=== PATIENT | female | born 1940 | race African-American/Black ===

== ENCOUNTER 2016-02-25 10:44 | Emergency (ER) | payer BC ==
[2016-02-25 10:56] VITALS: BP 175/69; PULSE 63; TEMP 98.7; BMI 29.0
--- NOTE | 2016-02-25 12:13 | PDOC ---
History of Present Illness - General Chief Complaint: Pain, Acute Stated Complaint: RT LEG/CALF PAIN Time Seen by Provider: 02/25/16 12:05 History Source: Patient Exam Limitations: No Limitations - History of Present Illness Initial Comments: 02/25/16 12:17 Chief complaint: rt. posterior knee pain History of present illness: Patient is a 75-year-old female with a history of insulin-dependent diabetes, hypertension, hyperlipidemia, and GERD here today complaining of right posterior knee pain 3 weeks. Patient denies that right knee gives out. Patient had been here a few weeks ago and had a venous Doppler ultrasound that was negative for Garcia's cyst or a DVT. 02/25/16 13:20 Occurred: reports: other (3 weeks ago) Severity: Yes: moderate Lower Extremity Pain Location: right: knee (posterior ) Method of Injury: Yes: unknown Modifying Factors: improves with: None Lower Ext. Injury Location - Specific Injury Location Knees: right swelling (posterior knee) Extremity Pain Location - Extremity Pain Location Extremity Pain Locations: right: knee (posterior ) Past History - Past Medical History Allergies/Adverse Reactions: Allergies Allergy/AdvReac Type Severity Reaction Status Date / Time codeine [Codeine] AdvReac NAUSEA/VOMI Verified 02/25/16 10:52 TING Home Medications: Ambulatory Orders Amlodipine Besylate [Norvasc -] 5 mg PO HS 08/31/11 Atorvastatin Ca [Lipitor] 20 mg PO HS 08/31/11 Losartan/Hydrochlorothiazide [Losartan-Hctz 100-25 mg Tab] 1 each PO DAILY 08/30 Metoprolol Tartrate [Lopressor -] 25 mg PO DAILY 08/31/11 Omeprazole [Prilosec (RX)] 20 mg PO DAILY 08/31/11 Magnesium Oxide [Mag-Oxide] 400 mg PO BID 02/19/12 Metformin Xr [Glucophage Xr] 500 mg PO BID 02/19/12 Anemia: Yes Asthma: No Cancer: Yes (lt BREAST) Cardiac Disorders: No CVA: No COPD: No CHF: No Dementia: No Diabetes: Yes GI Disorders: Yes (gerd) Disorders: No HTN: Yes Hypercholesterolemia: Yes Liver Disease: No Seizures: No Thyroid Disease: No - Surgical History Abdominal Surgery: No Appendectomy: No Cardiac Surgery: No Cholecystectomy: No Lung Surgery: No Neurologic Surgery: No Orthopedic Surgery: No - Immunization History Immunization Up to Date: Yes - Psycho/Social/Smoking Cessation Hx Anxiety: No Suicidal Ideation: No Smoking Status: No Smoking History: Never smoked Have you smoked in the past 12 months: No Number of Cigarettes Smoked Daily: 0 Information on smoking cessation initiated: No Hx Alcohol Use: No Drug/Substance Use Hx: No Substance Use Type: None Hx Substance Use Treatment: No Review of Systems - Review of Systems Able to Perform ROS?: Yes Constitutional: No: Symptoms Reported HEENTM: No: Symptoms Reported Respiratory: No: Symptoms reported Cardiac (ROS): No: Symptoms Reported ABD/GI: No: Symptoms Reported Musculoskeletal: Yes: Joint Pain, Joint Swelling (rt. posterior knee pain ) Neurological: No: Symptoms reported *Physical Exam - Vital Signs Last Vital Signs Temp Pulse Resp BP Pulse Ox 98.7 F 63 20 175/69 100 02/25/16 10:52 02/25/16 10:52 02/25/16 10:52 02/25/16 10:52 02/25/16 10:52 - Physical Exam General Appearance: Yes: Appropriately Dressed Respiratory/Chest: positive: Lungs Clear, Normal Breath Sounds. negative: Chest Tender, Respiratory Distress Cardiovascular: positive: Regular Rhythm, Regular Rate, S1, S2 Vascular Pulses: Dorsalis-Pedis (R): 4+ Extremity: positive: Normal Capillary Refill, Normal Inspection, Normal Range of Motion, Tender (rt. posterior knee, no crepitus ), Other (negative anterior/ posterior drawer, negative rt. Joana sign ) Integumentary: positive: Normal Color Neurologic: positive: Alert, Normal Response, Motor Strength 5/5 (right leg) Deep Tendon Reflexes: Ankle (R): 3+ Medical Decision Making - Medical Decision Making 02/25/16 13:20 02/25/16 13:20 Patient is a 75-year-old female with a history of insulin-dependent diabetes, hypertension, hyperlipidemia, and GERD here today complaining of right posterior knee pain 3 weeks. Patient denies that right knee gives out. Patient had been here a few weeks ago and had a venous Doppler ultrasound that was negative for Garcia's cyst or a DVT. 02/25/16 13:20 right knee pain posterior PLAN xray rt. knee degenerative changes noted follow up with orthopedist acetaminophen as needed as directed by floral designer salesperson 02/25/16 22:55 *DC/Admit/Observation/Transfer Diagnosis at time of Disposition: Posterior right knee pain - Discharge Dispostion Disposition: HOME Condition at time of disposition: Stable - Referrals Referrals: Mike Reyna MD, [Primary Care Provider] - Jerry Prather MD [Staff Physician] - - Patient Instructions Additional Instructions: Follow Up with orthopedist as soon as possible Take acetaminophen as needed as directed by floral designer salesperson for pain Avoid any strenuous activities while walking long distances Patient voiced understanding of discharge instructions and all questions were answered
== END 2016-02-25 14:12 | disposition home or self-care (01) ==
LOC: JERFT 10:44
DX: M25.561 Pain in right knee (principal); E11.9 Type 2 diabetes mellitus without complications; K21.9 Gastro-esophageal reflux disease without esophagitis; I10 Essential (primary) hypertension; E78.00 Pure hypercholesterolemia, unspecified; Z85.3 Personal history of malignant neoplasm of breast
CPT/HCPCS: 73562-TC-RT; 99281-25

== ENCOUNTER 2017-06-01 22:20 | Emergency (ER) | payer BC ==
[2017-06-01 22:34] VITALS: BP 156/60; PULSE 62; TEMP 97.2; BMI 28.9
[2017-06-01] MEDS ORDERED: DEXTROSE 5%-NORMAL SALINE 1,000 ML IV SCH (23:00)
--- NOTE | 2017-06-01 23:08 | PDOC ---
History of Present Illness - General History Source: Patient, Old Records Exam Limitations: No Limitations - History of Present Illness Initial Comments: 06/01/17 23:15 The patient is a 76-year-old female with a significant past medical history of metastatic breast cancer, hypertension, hypercholesterolemia, insulin dependent diabetes who presents to the emergency department with hypoglycemia. The patient states that she is suppose to take 20 units of Lantus before bed time but accidently took 20 units of humalog. The patient reports associated shakiness but denies any other symptoms at this time. <Jr Fisher - Last Filed: 06/01/17 23:15> - General History Source: Patient, Family Exam Limitations: No Limitations <Ej Ellis - Last Filed: 06/02/17 02:01> - General Chief Complaint: Blood Sugar Problem Stated Complaint: LOW SUGAR/SHAKING Time Seen by Provider: 06/01/17 22:33 Past History <Jr Fisher - Last Filed: 06/01/17 23:15> - Past Medical History Anemia: Yes Asthma: No Cancer: Yes (lt BREAST) Cardiac Disorders: No CVA: No COPD: No CHF: No Dementia: No Diabetes: Yes GI Disorders: Yes (gerd) Disorders: No HTN: Yes Hypercholesterolemia: Yes Liver Disease: No Seizures: No Thyroid Disease: No - Surgical History Abdominal Surgery: No Appendectomy: No Cardiac Surgery: No Cholecystectomy: No Lung Surgery: No Neurologic Surgery: No Orthopedic Surgery: No - Immunization History Immunization Up to Date: Yes - Suicide/Smoking/Psychosocial Hx Smoking Status: No Smoking History: Never smoked Have you smoked in the past 12 months: No Number of Cigarettes Smoked Daily: 0 Information on smoking cessation initiated: No Hx Alcohol Use: No Drug/Substance Use Hx: No Substance Use Type: None Hx Substance Use Treatment: No <Ej Ellis - Last Filed: 06/02/17 02:01> - Past Medical History Allergies/Adverse Reactions: Allergies Allergy/AdvReac Type Severity Reaction Status Date / Time codeine [Codeine] AdvReac NAUSEA/VOMI Verified 06/01/17 22:34 TING Home Medications: Ambulatory Orders Amlodipine Besylate [Norvasc -] 5 mg PO HS 08/31/11 Atorvastatin Ca [Lipitor] 20 mg PO HS 08/31/11 Losartan/Hydrochlorothiazide [Losartan-Hctz 100-25 mg Tab] 1 each PO DAILY 08/30 Metoprolol Tartrate [Lopressor -] 25 mg PO DAILY 08/31/11 Omeprazole [Prilosec (RX)] 20 mg PO DAILY 08/31/11 Magnesium Oxide [Mag-Oxide] 400 mg PO BID 02/19/12 metFORMIN XR [Glucophage Xr] 500 mg PO BID 02/19/12 Cephalexin [Keflex] 500 mg PO BID #14 capsule 06/02/17 Review of Systems - Review of Systems Able to Perform ROS?: Yes Comments:: 06/01/17 23:15 GENERAL/CONSTITUTIONAL: No fever. No weakness. HEAD, EYES, EARS, NOSE AND THROAT: No change in vision. No ear pain or discharge. No sore throat. CARDIOVASCULAR: No chest pain or shortness of breath. RESPIRATORY: No cough, wheezing, or hemoptysis. GASTROINTESTINAL: No nausea, vomiting, diarrhea or constipation. GENITOURINARY: No dysuria, frequency, or change in urination. MUSCULOSKELETAL: No joint or muscle swelling or pain. No neck or back pain. SKIN: No rash NEUROLOGIC: No headache, vertigo, loss of consciousness, or change in strength/ sensation. ENDOCRINE: No increased thirst. No abnormal weight change. HEMATOLOGIC/LYMPHATIC: (+) Low blood sugar. No anemia, easy bleeding, or history of blood clots. ALLERGIC/IMMUNOLOGIC: No hives or skin allergy. QUOTES: (+) Shakiness <Jr Fisher - Last Filed: 06/01/17 23:15> *Physical Exam - Vital Signs Last Vital Signs Temp Pulse Resp BP Pulse Ox 97.2 F L 62 17 156/60 100 06/01/17 22:26 06/01/17 22:26 06/01/17 22:26 06/01/17 22:26 06/01/17 22:26 - Physical Exam Comments: 06/01/17 23:15 GENERAL: Awake, alert, and fully oriented, in no acute distress HEAD: No signs of trauma EYES: PERRLA, EOMI, sclera anicteric, conjunctiva clear ENT: Auricles normal inspection, hearing grossly normal, nares patent, oropharynx clear without exudates. Moist mucosa NECK: Normal ROM, supple, no lymphadenopathy, JVD, or masses LUNGS: Breath sounds equal, clear to auscultation bilaterally. No wheezes, and no crackles HEART: Regular rate and rhythm, normal S1 and S2, no murmurs, rubs or gallops ABDOMEN: Soft, nontender, normoactive bowel sounds. No guarding, no rebound. No masses EXTREMITIES: Normal range of motion, no edema. No clubbing or cyanosis. No cords, erythema, or tenderness NEUROLOGICAL: Cranial nerves II through XII grossly intact. Normal speech, normal gait SKIN: Warm, Dry, normal turgor, no rashes or lesions noted. <Jr Fisher - Last Filed: 06/01/17 23:15> - Vital Signs Last Vital Signs Temp Pulse Resp BP Pulse Ox 97.2 F L 62 17 156/60 100 06/01/17 22:26 06/01/17 22:26 06/01/17 22:26 06/01/17 22:26 06/01/17 22:26 <Ej Ellis - Last Filed: 06/02/17 02:01> Heart Score/ECG Review #1 ECG reviewed & interpreted by me at: 01:50 06/02/17 01:53 NSR 69, no std/bar, TWI avL, QTC 432 msec <Ej Ellis - Last Filed: 06/02/17 02:01> ED Treatment Course - LABORATORY CBC & Chemistry Diagram: 06/01/17 23:10 06/01/17 23:10 <Ej Ellis - Last Filed: 06/02/17 02:01> Medical Decision Making - Medical Decision Making 06/01/17 23:04 A portion of this note was documented by scribe services under my direction. I have reviewed the details of the note, within reason, and agree with the documentation with the following case summary and management plan written by me. Patient treated in the ED. Nursing notes are reviewed and incorporated into the medical decision-making. Vital signs reviewed. Peripheral IV access obtained by the nurse, laboratory studies are drawn and sent, reviewed and interpreted by myself. Vital Signs Temp Pulse Resp BP Pulse Ox 97.2 F L 62 17 156/60 100 06/01/17 22:26 06/01/17 22:26 06/01/17 22:26 06/01/17 22:26 06/01/17 22:26 76-year-old female patient with history of hypertension, insulin-dependent diabetes presents with hypoglycemia. The patient was in her usual state of health and feeling well today. The patient was supposed to take 20 units of Lantus before bed but had had accidentally taken 20 minutes of Humalog. Patient reports that she typically takes 3 units of Humalog when she eats. She then felt lightheaded, palpitations, dizzy, shaky and noted her glucose is 43. Patient had then taken sugar tablet, can of soda, 2 cookies and called 911. The patient was then brought to the ED. She continued feels shaky you know her sugar has improved. Denies chest pain or shortness of breath. Denies recent illnesses, fevers, chills. I suspect that the hypoglycemia secondary to accidental dose of Humalog. We'll need to observe the patient and start a dextrose drip. We'll encourage patient to drink plenty of juice here. We'll obtain blood work and observe the patient. 06/02/17 01:55 CBC, BMP 06/01/17 23:10 06/01/17 23:10 CMP Sodium 140 mmol/L (136-145) 06/01/17 23:10 Potassium 4.0 mmol/L (3.5-5.1) 06/01/17 23:10 Chloride 103 mmol/L (98-107) 06/01/17 23:10 Carbon Dioxide 26 mmol/L (21-32) 06/01/17 23:10 Anion Gap 11 (8-16) 06/01/17 23:10 BUN 30 mg/dL (7-18) H 06/01/17 23:10 Creatinine 1.5 mg/dL (0.55-1.02) H 06/01/17 23:10 Creat Clearance w eGFR 33.67 (>60) 06/01/17 23:10 Random Glucose 230 mg/dL (74-106) H 06/01/17 23:10 Calcium 9.0 mg/dL (8.5-10.1) 06/01/17 23:10 Phosphorus 3.9 mg/dL (2.5-4.9) 06/01/17 23:10 Magnesium 2.1 mg/dL (1.8-2.4) 06/01/17 23:10 Total Bilirubin 0.3 mg/dL (0.2-1.0) 06/01/17 23:10 AST 20 U/L (15-37) 06/01/17 23:10 ALT 21 U/L (12-78) 06/01/17 23:10 Alkaline Phosphatase 149 U/L (45-117) H 06/01/17 23:10 Creatine Kinase 84 IU/L (26-192) 06/01/17 23:10 Troponin I < 0.02 ng/ml (0.00-0.05) 06/01/17:10 Total Protein 7.4 g/dl (6.4-8.2) 06/01/17 23:10 Albumin 3.9 g/dl (3.4-5.0) 06/01/17 23:10 Urine Test Results Urine Color Colorless 06/01/17 23:00 Urine Appearance Clear 06/01/17 23: Urine pH 5.0 (5.0-8.0) 06/01/17 23:00 Ur Specific [place] 1.003 (1.001-1.035) 06/01/17 23:00 Urine Protein 1+ (NEGATIVE) H 06/01/17 23:00 Urine Glucose (UA) 3+ (NEGATIVE) H D 06/01/17 23:00 Urine Ketones Negative (NEGATIVE) 06/01/17 23:00 Urine Blood Negative (NEGATIVE) 06/01/17 23:00 Urine Nitrite Negative (NEGATIVE) 06/01/17 23:00 Urine Bilirubin Negative (<2.0 mg/dL) 06/01/17 23:00 Ur Leukocyte Esterase 1+ (NEGATIVE) H 06/01/17 23:00 Ur Epithelial Cells Rare /HPF (FEW) 06/01/17 23:00 Urine Bacteria Rare /hpf (NONE SEEN) 06/01/17 23:00 Urine Mucus Rare 06/01/17 23:00 The patient has been tolerating by mouth and has been alert and awake. She been drinking juice without difficulty. She does endorse that she has some urinary frequency. Given 1+ leukocyte Estrace and 7 WBCs, we'll treat with cephalexin. I had discussed the case with [facility] who states can observe for about 4 to 6 hours, and if patient is alert and stable, the patient can be discharged home. Will d/c as UTI as well. Case signed out to Dr. Dalton Ou for observation. And if asymptomatic, can be discharged. <Ej Ellis - Last Filed: 06/02/17 02:01> *DC/Admit/Observation/Transfer - Attestations Scribe Attestion: 06/01/17 23:15 Documentation prepared by Jr Fisher, acting as biomedical instrument technician for Ej Ellis MD. <Jr Fisher - Last Filed: 06/01/17 23:15> <Ej Ellis - Last Filed: 06/02/17 02:01> Diagnosis at time of Disposition: Hypoglycemia UTI (urinary tract infection) Qualifiers: Urinary tract infection type: site unspecified Hematuria presence: without hematuria Qualified Code(s): N39.0 - Urinary tract infection, site not specified - Discharge Dispostion Condition at time of disposition: Stable - Prescriptions Prescriptions: Cephalexin [Keflex] 500 mg PO BID #14 capsule - Referrals Referrals: Mike Reyna MD, MD [Primary Care Provider] - - Patient Instructions Printed Discharge Instructions: DI for Urinary Tract Infection (UTI), DI for Hypoglycemia Additional Instructions: Please drink plenty of fluids and rest. Please be careful the next time you use insulin. You also have a urine infection. Please take the antibiotics as prescribed. Complete the course and follow up with the doctor.
[2017-06-01 23:30] LABS: BASO % 0.1 % (0-2.0); EOS % 0.1 % (0-4.5); HEMATOCRIT 35.7 % (32.4-45.2); LYMPH % 3.9 % (8-40); MCH 28.9 pg (25.7-33.7); MCHC 33.5 g/dl (32.0-36.0); MEAN PLT VOLUME 7.9 fl (7.5-11.1); MONO % 4.7 % (3.8-10.2); NEUT % 91.2 % (42.8-82.8); PLATELET COUNT 207 K/MM3 (134-434); RBC 4.15 M/mm3 (3.60-5.2); RDW 13.4 % (11.6-15.6); WHITE BLOOD COUNT 9.8 K/mm3 (4.0-10.0)
[2017-06-01 23:41] LABS: URINE APPEARANCE CLEAR; URINE BILIRUBIN NEGATIVE (<2.0 mg/dL); URINE BLOOD NEGATIVE (NEGATIVE); URINE COLOR COLORLESS; URINE GLUCOSE (UA) 3+ (NEGATIVE); URINE KETONE NEGATIVE (NEGATIVE); URINE NITRITE NEGATIVE (NEGATIVE); URINE UROBILINOGEN NEGATIVE mg/dL (0.2-1.0)
[2017-06-01 23:51] LABS: URINE LEUK ESTERASE 1+ (NEGATIVE); URINE PROTEIN 1+ (NEGATIVE)
[2017-06-01 23:52] LABS: ALBUMIN 3.9 g/dl (3.4-5.0); ALK PHOS 149 U/L (45-117); ANION GAP 11 (8-16); BILIRUBIN,TOTAL 0.3 mg/dL (0.2-1.0); BLOOD UREA NITROGEN 30 mg/dL (7-18); CHLORIDE 103 mmol/L (98-107); CO2 26 mmol/L (21-32); CREATININE 1.5 mg/dL (0.55-1.02); GLUCOSE,RANDOM 230 mg/dL (74-106); MAGNESIUM 2.1 mg/dL (1.8-2.4); PHOSPHOROUS 3.9 mg/dL (2.5-4.9); SGOT/AST 20 U/L (15-37); SGPT/ALT 21 U/L (12-78); SODIUM 140 mmol/L (136-145); TOT PROT 7.4 g/dl (6.4-8.2)
[2017-06-02 00:28] LABS: EPI CELLS RARE /HPF (FEW); URINE BACTERIA RARE /hpf (NONE SEEN); URINE MUCUS RARE
[2017-06-02] MEDS ORDERED: CEPHALEXIN 250 MG/5 ML ORAL SUSPENSION PO ONE (01:23)
[2017-06-02] MEDS ORDERED: CEPHALEXIN MONOHYDRATE 500 MG CAPSULE (UD) PO ONE (02:01)
[2017-06-02] MEDS ORDERED: CEPHALEXIN MONOHYDRATE 250 MG CAPSULE (FP) ONE (02:25)
--- NOTE | 2017-06-02 06:03 | PDOC ---
*Physical Exam - Vital Signs Last Vital Signs Temp Pulse Resp BP Pulse Ox 97.2 F L 62 17 156/60 100 06/01/17 22:26 06/01/17 22:26 06/01/17 22:26 06/01/17 22:26 06/01/17 22:26 - Physical Exam Comments: 06/02/17 06:02 "GENERAL: Awake, alert, and fully oriented, in no acute distress. HEAD: No signs of trauma EYES: PERRLA, EOMI, sclera anicteric, conjunctiva clear ENT: Auricles normal inspection, hearing grossly normal, nares patent, oropharynx clear without exudates. Moist mucosa NECK: Nontender, no stepoffs, Normal ROM, supple, no lymphadenopathy, JVD, or masses LUNGS: Breath sounds equal, clear to auscultation bilaterally. No wheezes, and no crackles HEART: Regular rate and rhythm, normal S1 and S2, no murmurs, rubs or gallops ABDOMEN: Soft, nontender, normoactive bowel sounds. No guarding, no rebound. No masses EXTREMITIES: Normal range of motion, no edema. No clubbing or cyanosis. No cords, erythema, or tenderness NEUROLOGICAL: Cranial nerves II through XII intact. 5/5 strength and sensation in all extremities, Normal speech, normal gait, normal cerebellar function SKIN: Warm, Dry, normal turgor, no rashes or lesions noted. " ED Treatment Course - LABORATORY CBC & Chemistry Diagram: 06/01/17 23:10 06/01/17 23:10 - ADDITIONAL ORDERS Additional order review: Laboratory Results 06/01/17 06/01/17 06/01/17 23:10 23:10 23:00 Sodium 140 Potassium 4.0 Chloride 103 Carbon Dioxide 26 Anion Gap 11 BUN 30 H Creatinine 1.5 H Creat Clearance w eGFR 33.67 Random Glucose 230 H Calcium 9.0 Phosphorus 3.9 Magnesium 2.1 Total Bilirubin 0.3 AST 20 ALT 21 Alkaline Phosphatase 149 H Creatine Kinase 84 Troponin I < 0.02 Total Protein 7.4 Albumin 3.9 Urine Color Colorless Urine Appearance Clear Urine pH 5.0 Ur Specific [place] 1.003 Urine Protein 1+ H Urine Glucose (UA) 3+ H D Urine Ketones Negative Urine Blood Negative Urine Nitrite Negative Urine Bilirubin Negative Urine Urobilinogen Negative Ur Leukocyte Esterase 1+ H Urine WBC (Auto) 7 Urine RBC (Auto) None Ur Epithelial Cells Rare Urine Bacteria Rare Urine Mucus Rare 06/01/17 23:10 RBC 4.15 D MCV 86.0 MCHC 33.5 RDW 13.4 D MPV 7.9 Neutrophils % 91.2 H D Lymphocytes % 3.9 L D Monocytes % 4.7 Eosinophils % 0.1 Basophils % 0.1 - Medications Given in the ED: ED Medications Discontinued Medications Generic Name Dose Route Start Last Admin Trade Name Amelia PRN Reason Stop Dose Admin Cephalexin 500 mg 06/02/17 01:23 06/02/17 02:32 Keflex Oral Suspension - PO 06/02/17 01:24 Not Given ONCE ONE Cephalexin HCl 500 mg 06/02/17 02:01 06/02/17 02:31 Keflex - PO 06/02/17 02:02 500 mg ONCE ONE Administration Medical Decision Making - Medical Decision Making 06/02/17 06:02 Sign out taken from Dr. Ellis at 2AM. Pt reassessed - states she feels well. Pt is well appearing, with normal vitals. Clinically stable for DC at this time. I discussed the physical exam findings, ancillary test results and final diagnoses with the patient. I answered all of the patient's questions. The patient was satisfied with the care received and felt comfortable with the discharge plan and treatment plan. The patient agrees to follow up with the primary care physician within 24-72 hours. *DC/Admit/Observation/Transfer Diagnosis at time of Disposition: Hypoglycemia UTI (urinary tract infection) Qualifiers: Urinary tract infection type: site unspecified Hematuria presence: without hematuria Qualified Code(s): N39.0 - Urinary tract infection, site not specified - Discharge Dispostion Condition at time of disposition: Stable - Prescriptions Prescriptions: Cephalexin [Keflex] 500 mg PO BID #14 capsule - Referrals Referrals: Mike Reyna MD, MD [Primary Care Provider] - - Patient Instructions Printed Discharge Instructions: DI for Urinary Tract Infection (UTI), DI for Hypoglycemia Additional Instructions: Please drink plenty of fluids and rest. Please be careful the next time you use insulin. You also have a urine infection. Please take the antibiotics as prescribed. Complete the course and follow up with the doctor. - Post Discharge Activity - Attestations Physician Attestion: 06/02/17 06:03 I, Dr. Dalton Maria MD, attest that this document has been prepared under my direction and personally reviewed by me in its entirety. I further attest, that it accurately reflects all work, treatment, procedures and medical decision -making performed by me.
--- NOTE | 2017-06-04 12:52 | EKG ---
Test Reason : Blood Pressure : / mmHG Vent. Rate : 069 BPM Atrial Rate : 069 BPM P-R Int : 158 ms QRS Dur : 078 ms QT Int : 404 ms P-R-T Axes : 048 -09 060 degrees QTc Int : 432 ms NORMAL SINUS RHYTHM WITH SINUS ARRHYTHMIA NORMAL ECG WHEN COMPARED WITH ECG OF 30-SEP-2009 14:58, NONSPECIFIC T WAVE ABNORMALITY NO LONGER EVIDENT IN INFERIOR LEADS Confirmed by MELANY OTERO MD ([id number]) on 06/04/2017 12:51:58 PM Referred By: Confirmed By:MELANY OTERO MD
== END 2017-06-02 07:14 | disposition home or self-care (01) ==
LOC: JER 22:20
PROC: 3E0337Z Introduction of Electrolytic and Water Balance Substance into Peripheral Vein, Percutaneous Approach (ICD-10-PCS; principal; 2017-06-01)
DX: E11.649 Type 2 diabetes mellitus with hypoglycemia without coma (principal); T38.3X5A Adverse effect of insulin and oral hypoglycemic [antidiabetic] drugs, initial encounter; Z79.4 Long term (current) use of insulin; Y92.038 Other place in apartment as the place of occurrence of the external cause; E78.00 Pure hypercholesterolemia, unspecified; K21.9 Gastro-esophageal reflux disease without esophagitis; Z85.3 Personal history of malignant neoplasm of breast
CPT/HCPCS: 36415; 80053; 81003; 81015; 82550; 82962; 83735; 84100; 84484; 85025; 87086; 93005; 93010; 96360; 96361; 99282-25

== ENCOUNTER → 2019-04-01 | Day surgery (SDC) | payer BC ==
[2019-04-01 13:38] LABS: BASO % 1.1 % (0-2.0); EOS % 1.8 % (0-4.5); HEMATOCRIT 37.8 % (32.4-45.2); HEMOGLOBIN 12.5 GM/dL (10.7-15.3); LYMPH % 29.8 % (8-40); MCH 28.5 pg (25.7-33.7); MCHC 33.2 g/dl (32.0-36.0); MEAN CELL VOLUME 85.7 fl (80-96); MONO % 6.5 % (3.8-10.2); NEUT % 60.8 % (42.8-82.8); PLATELET COUNT 233 K/MM3 (134-434); RBC 4.41 M/mm3 (3.60-5.2); RDW 13.6 % (11.6-15.6); WHITE BLOOD COUNT 5.9 K/mm3 (4.0-10.0)
== END | disposition home or self-care (01) ==
LOC: EDSTATUS 07:41 → JONCCHEMO 13:09
PROVIDERS: ATTEND Internal Medicine Hematology & Oncology
DX: Z53.8 Procedure and treatment not carried out for other reasons (principal)
CPT/HCPCS: 36415; 82378; 83036; 85025; 86300; 96365

== ENCOUNTER 2020-06-12 15:19 | Emergency (ER) | payer BC ==
[2020-06-12 15:29] VITALS: BMI 27.0
[2020-06-12 17:25] VITALS: TEMP 98.4
[2020-06-12 17:28] LABS: BASO % 1.1 % (0-2.0); EOS % 1.4 % (0-4.5); HEMATOCRIT 37.7 % (32.4-45.2); HEMOGLOBIN 12.5 GM/dL (10.7-15.3); LYMPH % 32.1 % (8-40); MCH 28.6 pg (25.7-33.7); MCHC 33.2 g/dl (32.0-36.0); MEAN PLT VOLUME 8.4 fl (7.5-11.1); NEUT % 54.4 % (42.8-82.8); PLATELET COUNT 184 K/MM3 (134-434); RBC 4.39 M/mm3 (3.60-5.2); RDW 13.3 % (11.6-15.6); WHITE BLOOD COUNT 4.1 K/mm3 (4.0-10.0)
[2020-06-12 17:51] LABS: CHLORIDE 108 mmol/L (98-107); SODIUM 141 mmol/L (136-145)
[2020-06-12 17:53] LABS: ALBUMIN 3.4 g/dl (3.4-5.0); ANION GAP 6 MMOL/L (8-16); BLOOD UREA NITROGEN 21.2 mg/dL (7-18); CALCIUM 8.7 mg/dL (8.5-10.1); CO2 27 mmol/L (21-32); GLUCOSE,RANDOM 106 mg/dL (74-106)
[2020-06-12 17:56] LABS: CREATININE 1.3 mg/dL (0.55-1.3); SGOT/AST 20 U/L (15-37); SGPT/ALT 18 U/L (13-61)
[2020-06-12 17:58] LABS: BILIRUBIN,TOTAL 0.4 mg/dL (0.2-1); TOT PROT 6.6 g/dl (6.4-8.2)
[2020-06-12 17:59] LABS: ALK PHOS 136 U/L (45-117)
[2020-06-12] MEDS ORDERED: amLODIPine BESYLATE 10 MG TABLET (FP) PO ONE (18:38)
[2020-06-12 18:42] LABS: EPI CELLS 6 /uL (0-25.1); HYALINE CASTS 2 /uL (0-3.1); URINE APPEARANCE CLEAR; URINE BACTERIA 72 /uL (0-1359); URINE BILIRUBIN NEGATIVE (NEGATIVE); URINE COLOR YELLOW; URINE GLUCOSE (UA) NEGATIVE (NEGATIVE); URINE KETONE NEGATIVE (NEGATIVE); URINE LEUK ESTERASE NEGATIVE (NEGATIVE); URINE NITRITE NEGATIVE (NEGATIVE); URINE PROTEIN 2+ (NEGATIVE); URINE RBC 3 /uL (0-23.9); URINE UROBILINOGEN 0.2 mg/dL (0.2-1.0); URINE WBC 9 /uL (0-25.8)
[2020-06-12] MEDS ORDERED: amLODIPine BESYLATE 5 MG TABLET (FP) ONE (19:36)
[2020-06-12] MEDS ORDERED: NITROGLYCERIN SUBLINGUAL 1/150 0.4 MG TAB SL ONE (20:01)
[2020-06-12] MEDS ORDERED: VALSARTAN 40 MG TABLET PO ONE (20:02)
[2020-06-12] MEDS ORDERED: VALSARTAN 80 MG TABLET ONE (20:05)
[2020-06-12 20:25] VITALS: BP 175/84; PULSE 68
== END 2020-06-12 20:32 | disposition home or self-care (01) ==
LOC: JER 15:19
DX: I10 Essential (primary) hypertension (principal)
CPT/HCPCS: 36415; 70450-TC; 71046-TC-FY; 80053; 81003; 82550; 82962; 84484; 85025; 93005; 93010; 99285-25

== ENCOUNTER 2020-07-01 11:20 | Observation (INO) | payer BC ==
[2020-07-01 11:23] VITALS: BMI 26.8
[2020-07-01 13:16] LABS: BASO % 0.9 % (0-2.0); HEMATOCRIT 37.4 % (32.4-45.2); HEMOGLOBIN 12.6 GM/dL (10.7-15.3); LYMPH % 27.5 % (8-40); MCH 28.8 pg (25.7-33.7); MCHC 33.6 g/dl (32.0-36.0); MEAN CELL VOLUME 85.7 fl (80-96); MEAN PLT VOLUME 8.7 fl (7.5-11.1); MONO % 7.1 % (3.8-10.2); NEUT % 63.5 % (42.8-82.8); PLATELET COUNT 196 K/MM3 (134-434); RBC 4.37 M/mm3 (3.60-5.2); RDW 13.4 % (11.6-15.6); WHITE BLOOD COUNT 5.1 K/mm3 (4.0-10.0)
[2020-07-01 13:42] LABS: CHLORIDE 105 mmol/L (98-107); SODIUM 139 mmol/L (136-145)
[2020-07-01 13:44] LABS: ALBUMIN 3.6 g/dl (3.4-5.0); ANION GAP 5 MMOL/L (8-16); BLOOD UREA NITROGEN 18.4 mg/dL (7-18); CALCIUM 8.6 mg/dL (8.5-10.1); CO2 29 mmol/L (21-32); GLUCOSE,RANDOM 158 mg/dL (74-106); MAGNESIUM 2.2 mg/dL (1.8-2.4)
[2020-07-01 13:47] LABS: CREATININE 1.2 mg/dL (0.55-1.3); SGOT/AST 24 U/L (15-37); SGPT/ALT 25 U/L (13-61)
[2020-07-01 13:49] LABS: BILIRUBIN,TOTAL 0.4 mg/dL (0.2-1); TOT PROT 6.8 g/dl (6.4-8.2)
[2020-07-01 13:50] LABS: ALK PHOS 142 U/L (45-117)
[2020-07-01] MEDS ORDERED: D5-1/2NS+20 MEQ KCL - 20 MEQ/1,000 ML INFUS.BAG IV SCH (17:00)
[2020-07-01] MEDS: HEPARIN NA (PORCINE) 5,000 UNITS/ML 1ML VIAL SQ SCH (21:40)
[2020-07-01] MEDS ORDERED: ATORVASTATIN CA 20 MG TABLET (FP) PO SCH (22:00)
[2020-07-02 06:04] LABS: BASO % 0.4 % (0-2.0); EOS % 2.9 % (0-4.5); HEMATOCRIT 35.4 % (32.4-45.2); HEMOGLOBIN 12.2 GM/dL (10.7-15.3); LYMPH % 41.5 % (8-40); MCH 29.2 pg (25.7-33.7); MCHC 34.4 g/dl (32.0-36.0); MEAN CELL VOLUME 84.9 fl (80-96); MEAN PLT VOLUME 8.3 fl (7.5-11.1); MONO % 10.3 % (3.8-10.2); NEUT % 44.9 % (42.8-82.8); PLATELET COUNT 173 K/MM3 (134-434); RBC 4.17 M/mm3 (3.60-5.2); RDW 13.1 % (11.6-15.6); WHITE BLOOD COUNT 4.3 K/mm3 (4.0-10.0)
[2020-07-02 06:36] LABS: CHLORIDE 109 mmol/L (98-107); SODIUM 140 mmol/L (136-145)
[2020-07-02 06:38] LABS: CALCIUM 8.6 mg/dL (8.5-10.1)
[2020-07-02 06:39] LABS: ANION GAP 5 MMOL/L (8-16); BLOOD UREA NITROGEN 17.8 mg/dL (7-18); CO2 26 mmol/L (21-32); GLUCOSE,RANDOM 161 mg/dL (74-106)
[2020-07-02 06:41] LABS: SGPT/ALT 19 U/L (13-61)
[2020-07-02 06:42] LABS: CREATININE 1.1 mg/dL (0.55-1.3); SGOT/AST 13 U/L (15-37)
[2020-07-02 06:43] LABS: BILIRUBIN,TOTAL 0.4 mg/dL (0.2-1)
[2020-07-02 06:44] LABS: ALK PHOS 123 U/L (45-117)
[2020-07-02] MEDS ORDERED: ANASTROZOLE 1 MG TABLET PO SCH (10:00)
[2020-07-02] MEDS ORDERED: VALSARTAN 40 MG TABLET PO SCH (10:00)
[2020-07-02] MEDS ORDERED: amLODIPine BESYLATE 5 MG TABLET (FP) PO SCH (10:00)
[2020-07-02] MEDS ORDERED: PT OWN MED DRAWER 7, Y5N ONE (10:29)
[2020-07-02] MEDS: HEPARIN NA (PORCINE) 5,000 UNITS/ML 1ML VIAL SQ SCH (10:35)
[2020-07-02 10:45] VITALS: BP 155/62; PULSE 47; TEMP 97.6
[2020-07-02] MEDS ORDERED: INSULIN SLIDING SCALE (NOVOLOG) 1 VIAL SQ SCH (11:00)
[2020-07-02] MEDS ORDERED: VALSARTAN 40 MG TABLET PO ONE (11:45)
[2020-07-03] MEDS ORDERED: VALSARTAN 80 MG TABLET PO SCH (10:00)
== END 2020-07-02 14:00 | disposition home or self-care (01) ==
LOC: JER 11:20 → UNDOADMOB 13:12 → JERBED 13:12 → INTOOBSV 13:12 → J4S 20:21 → JERBED 20:21 → J4S 07-02 11:37
PROVIDERS: ADMIT Family Medicine; ATTEND Family Medicine
PROC: 3E023GC Introduction of Other Therapeutic Substance into Muscle, Percutaneous Approach (ICD-10-PCS; principal; 2020-07-02)
PROC: 3E013VG Introduction of Insulin into Subcutaneous Tissue, Percutaneous Approach (ICD-10-PCS; 2020-07-02)
PROC: 3E033GC Introduction of Other Therapeutic Substance into Peripheral Vein, Percutaneous Approach (ICD-10-PCS; 2020-07-02)
DX: R00.1 Bradycardia, unspecified (principal); I10 Essential (primary) hypertension; R01.1 Cardiac murmur, unspecified; R42 Dizziness and giddiness; E11.9 Type 2 diabetes mellitus without complications; E78.5 Hyperlipidemia, unspecified; Z85.3 Personal history of malignant neoplasm of breast; Z29.9 Encounter for prophylactic measures, unspecified; Z88.6 Allergy status to analgesic agent
CPT/HCPCS: 36415; 71045-TC-FY; 80053; 82550; 82962; 83036; 83735; 84443; 84484; 85025; 93005; 93010; 93306-TC; 96372; 96374; 99285-25; C9803; G0378; J1644; U0003; U0005

== ENCOUNTER 2020-07-09 12:29 | Observation (INO) | payer BC ==
[2020-07-09] MEDS ORDERED: LACTATED RINGERS SOLUTION 1000 ML INFUS.BAG IV ONE (13:18)
[2020-07-09 13:49] LABS: BASO % 0.5 % (0-2.0); EOS % 0.5 % (0-4.5); HEMATOCRIT 37.2 % (32.4-45.2); HEMOGLOBIN 12.6 GM/dL (10.7-15.3); LYMPH % 17.2 % (8-40); MCH 28.7 pg (25.7-33.7); MCHC 33.7 g/dl (32.0-36.0); MONO % 9.2 % (3.8-10.2); NEUT % 72.6 % (42.8-82.8); PLATELET COUNT 204 K/MM3 (134-434); RBC 4.38 M/mm3 (3.60-5.2); RDW 13.2 % (11.6-15.6); WHITE BLOOD COUNT 5.2 K/mm3 (4.0-10.0)
[2020-07-09 14:06] LABS: CHLORIDE 105 mmol/L (98-107); SODIUM 138 mmol/L (136-145)
[2020-07-09 14:08] LABS: CALCIUM 8.9 mg/dL (8.5-10.1)
[2020-07-09 14:09] LABS: ANION GAP 6 MMOL/L (8-16); BLOOD UREA NITROGEN 18.6 mg/dL (7-18); CO2 28 mmol/L (21-32); GLUCOSE,RANDOM 225 mg/dL (74-106); MAGNESIUM 2.3 mg/dL (1.8-2.4)
[2020-07-09 14:12] LABS: CREATININE 1.3 mg/dL (0.55-1.3); SGOT/AST 15 U/L (15-37); SGPT/ALT 20 U/L (13-61)
[2020-07-09 14:13] LABS: BILIRUBIN,TOTAL 0.3 mg/dL (0.2-1)
[2020-07-09 14:14] LABS: TOT PROT 6.9 g/dl (6.4-8.2)
[2020-07-09 14:15] LABS: ALK PHOS 136 U/L (45-117)
[2020-07-09 14:27] LABS: EPI CELLS 5 /uL (0-25.1); HYALINE CASTS 1 /uL (0-3.1); PH,URINE 6.5 (5.0-8.0); URINE APPEARANCE CLEAR; URINE BACTERIA 20 /uL (0-1359); URINE BILIRUBIN NEGATIVE (NEGATIVE); URINE COLOR YELLOW; URINE GLUCOSE (UA) 3+ (NEGATIVE); URINE KETONE NEGATIVE (NEGATIVE); URINE LEUK ESTERASE NEGATIVE (NEGATIVE); URINE NITRITE NEGATIVE (NEGATIVE); URINE PROTEIN 2+ (NEGATIVE); URINE RBC 4 /uL (0-23.9); URINE UROBILINOGEN 0.2 mg/dL (0.2-1.0); URINE WBC 10 /uL (0-25.8)
[2020-07-09 14:29] LABS: ALBUMIN 3.8 g/dl (3.4-5.0)
[2020-07-09] MEDS ORDERED: ACETAMINOPHEN 325 MG TABLET (FP) PO ONE (16:41)
[2020-07-09] MEDS ORDERED: ACETAMINOPHEN 325 MG TABLET (FP) ONE (17:00)
[2020-07-09] MEDS: LACTATED RINGERS SOLUTION 1,000 ML/1,000 ML INFUS.BAG IV SCH (19:24)
[2020-07-09] MEDS: ATORVASTATIN CA 20 MG TABLET (FP) PO SCH (22:16)
[2020-07-09] MEDS: amLODIPine BESYLATE 10 MG TABLET (FP) PO SCH (22:16)
[2020-07-09] MEDS: INSULIN SLIDING SCALE (NOVOLOG) 1 VIAL SQ SCH (22:16)
[2020-07-09] MEDS: PRAMIPEXOLE DIHYDROCHLORIDE 0.125 MG TABLET PO SCH (22:48)
[2020-07-10 00:52] VITALS: BMI 26.4
[2020-07-10] MEDS: INSULIN SLIDING SCALE (NOVOLOG) 1 VIAL SQ SCH ×4 (06:56→21:25)
[2020-07-10] MEDS ORDERED: ACETAMINOPHEN 325 MG TABLET (FP) PO ONE (07:01)
[2020-07-10 08:07] LABS: BASO % 0.6 % (0-2.0); EOS % 1.8 % (0-4.5); HEMATOCRIT 35.5 % (32.4-45.2); LYMPH % 35.3 % (8-40); MCH 28.8 pg (25.7-33.7); MCHC 33.9 g/dl (32.0-36.0); MEAN PLT VOLUME 8.1 fl (7.5-11.1); MONO % 10.3 % (3.8-10.2); PLATELET COUNT 182 K/MM3 (134-434); RBC 4.17 M/mm3 (3.60-5.2); RDW 13.3 % (11.6-15.6); WHITE BLOOD COUNT 4.5 K/mm3 (4.0-10.0)
[2020-07-10 08:08] LABS: ALBUMIN 3.1 g/dl (3.4-5.0); BLOOD UREA NITROGEN 15.8 mg/dL (7-18); CALCIUM 8.8 mg/dL (8.5-10.1); MAGNESIUM 2.1 mg/dL (1.8-2.4)
[2020-07-10 08:11] LABS: PHOSPHOROUS 4.1 mg/dL (2.5-4.9)
[2020-07-10 08:13] LABS: BILIRUBIN,TOTAL 0.4 mg/dL (0.2-1)
[2020-07-10] MEDS ORDERED: PT OWN MED DRAWER 7, Y5N ONE ×7 (08:52→21:00)
[2020-07-10] MEDS: ENOXAPARIN NA (PORCINE) 40 MG/0.4 ML DISP.SYRIN SQ SCH (09:55)
[2020-07-10] MEDS: VALSARTAN 80 MG TABLET PO SCH (09:57)
[2020-07-10] MEDS: PANTOPRAZOLE 20 MG TABLET PO SCH (09:57)
[2020-07-10] MEDS: PRAMIPEXOLE DIHYDROCHLORIDE 0.125 MG TABLET PO SCH ×2 (09:57→21:26)
[2020-07-10] MEDS ORDERED: SODIUM BICARBONATE 325 MG TABLET PO SCH (10:00)
[2020-07-10] MEDS ORDERED: [UNRECOGNIZED DRUG - OTHER] PO SCH (10:00)
[2020-07-10] MEDS ORDERED: OMEPRAZOLE PO SCH (10:00)
[2020-07-10] MEDS ORDERED: SODIUM BICARBONATE PO SCH (10:00)
[2020-07-10] MEDS ORDERED: SODIUM BICARBONATE 650 MG TABLET PO SCH (12:07)
[2020-07-10] MEDS: SODIUM BICARBONATE 650 MG TABLET PO SCH (12:10)
[2020-07-10] MEDS: ANASTROZOLE 1 MG TABLET PO SCH (12:13)
[2020-07-10] MEDS: LACTATED RINGERS SOLUTION 1,000 ML/1,000 ML INFUS.BAG IV SCH (13:13)
[2020-07-10] MEDS: ATORVASTATIN CA 20 MG TABLET (FP) PO SCH (21:26)
[2020-07-10] MEDS: amLODIPine BESYLATE 10 MG TABLET (FP) PO SCH (21:26)
[2020-07-11] MEDS: LACTATED RINGERS SOLUTION 1,000 ML/1,000 ML INFUS.BAG IV SCH (02:35)
[2020-07-11] MEDS: INSULIN SLIDING SCALE (NOVOLOG) 1 VIAL SQ SCH ×4 (06:01→21:14)
[2020-07-11] MEDS ORDERED: PT OWN MED DRAWER 7, Y5N ONE ×2 (09:20→21:13)
[2020-07-11] MEDS: ANASTROZOLE 1 MG TABLET PO SCH (09:22)
[2020-07-11] MEDS: SODIUM BICARBONATE 650 MG TABLET PO SCH (09:22)
[2020-07-11] MEDS: PRAMIPEXOLE DIHYDROCHLORIDE 0.125 MG TABLET PO SCH ×2 (09:22→21:14)
[2020-07-11] MEDS: VALSARTAN 80 MG TABLET PO SCH (09:22)
[2020-07-11] MEDS: PANTOPRAZOLE 20 MG TABLET PO SCH (09:22)
[2020-07-11] MEDS ORDERED: ACETAMINOPHEN 325 MG TABLET (FP) PO ONE (09:45)
[2020-07-11] MEDS: ENOXAPARIN NA (PORCINE) 40 MG/0.4 ML DISP.SYRIN SQ SCH (11:05)
[2020-07-11] MEDS: amLODIPine BESYLATE 10 MG TABLET (FP) PO SCH (21:14)
[2020-07-11] MEDS: ATORVASTATIN CA 20 MG TABLET (FP) PO SCH (21:14)
[2020-07-12] MEDS: INSULIN SLIDING SCALE (NOVOLOG) 1 VIAL SQ SCH ×3 (06:32→16:55)
[2020-07-12 08:14] LABS: ALBUMIN 3.2 g/dl (3.4-5.0); BLOOD UREA NITROGEN 22.5 mg/dL (7-18); CALCIUM 9.1 mg/dL (8.5-10.1)
[2020-07-12 08:16] LABS: BILIRUBIN,TOTAL 0.4 mg/dL (0.2-1); TOT PROT 6.3 g/dl (6.4-8.2)
[2020-07-12 08:17] LABS: CREATININE 1.2 mg/dL (0.55-1.3)
[2020-07-12 08:18] LABS: PHOSPHOROUS 4.2 mg/dL (2.5-4.9)
[2020-07-12 08:34] LABS: BASO % 0.6 % (0-2.0); EOS % 3.2 % (0-4.5); HEMATOCRIT 37.8 % (32.4-45.2); HEMOGLOBIN 12.5 GM/dL (10.7-15.3); LYMPH % 39.5 % (8-40); MCH 28.6 pg (25.7-33.7); MEAN CELL VOLUME 86.8 fl (80-96); MEAN PLT VOLUME 8.7 fl (7.5-11.1); MONO % 10.4 % (3.8-10.2); NEUT % 46.3 % (42.8-82.8); PLATELET COUNT 190 K/MM3 (134-434); RBC 4.35 M/mm3 (3.60-5.2); RDW 13.4 % (11.6-15.6); WHITE BLOOD COUNT 3.8 K/mm3 (4.0-10.0)
[2020-07-12] MEDS ORDERED: PT OWN MED DRAWER 7, Y5N ONE ×2 (09:24→16:01)
[2020-07-12] MEDS: ENOXAPARIN NA (PORCINE) 40 MG/0.4 ML DISP.SYRIN SQ SCH (09:45)
[2020-07-12] MEDS: VALSARTAN 80 MG TABLET PO SCH (09:45)
[2020-07-12] MEDS: PANTOPRAZOLE 20 MG TABLET PO SCH (09:45)
[2020-07-12] MEDS: ANASTROZOLE 1 MG TABLET PO SCH (09:46)
[2020-07-12] MEDS: PRAMIPEXOLE DIHYDROCHLORIDE 0.125 MG TABLET PO SCH (09:46)
[2020-07-12] MEDS: SODIUM BICARBONATE 650 MG TABLET PO SCH (09:48)
[2020-07-12 13:35] VITALS: BP 151/68; PULSE 65; TEMP 98.3
[2020-07-12] MEDS ORDERED: ACETAMINOPHEN 325 MG TABLET (FP) PO ONE (14:27)
[2020-07-12] MEDS ORDERED: SODIUM ZIRCONIUM CYCLOSILICATE (LOKELMA) 10 GM PACKET PO ONE (14:56)
[2020-07-12] MEDS ORDERED: VALSARTAN 40 MG TABLET PO SCH (15:14)
[2020-07-12] MEDS ORDERED: amLODIPine BESYLATE 5 MG TABLET (FP) PO SCH (15:14)
== END 2020-07-12 18:31 | disposition home or self-care (01) ==
LOC: JER 12:29 → INTOOBSV 17:08 → UNDOADMOB 17:08 → JERBED 17:08 → J4S 21:32
PROVIDERS: ADMIT Student in an Organized Health Care Education/Training Program; ATTEND Internal Medicine
PROC: 3E013VG Introduction of Insulin into Subcutaneous Tissue, Percutaneous Approach (ICD-10-PCS; principal; 2020-07-10)
PROC: 3E0337Z Introduction of Electrolytic and Water Balance Substance into Peripheral Vein, Percutaneous Approach (ICD-10-PCS; 2020-07-10)
PROC: 3E023GC Introduction of Other Therapeutic Substance into Muscle, Percutaneous Approach (ICD-10-PCS; 2020-07-10)
DX: E11.21 Type 2 diabetes mellitus with diabetic nephropathy (principal); I35.0 Nonrheumatic aortic (valve) stenosis; I10 Essential (primary) hypertension; E78.5 Hyperlipidemia, unspecified; N28.9 Disorder of kidney and ureter, unspecified; I95.1 Orthostatic hypotension; E87.5 Hyperkalemia; K21.9 Gastro-esophageal reflux disease without esophagitis; Z85.3 Personal history of malignant neoplasm of breast; Z29.9 Encounter for prophylactic measures, unspecified; Z88.6 Allergy status to analgesic agent
CPT/HCPCS: 36415; 70450-TC; 72125-TC; 80053; 81003; 82550; 82962; 83735; 84100; 84443; 84484; 85025; 87086; 93005; 93010; 93306-TC; 93880-TC; 96360; 96372; 97116-GP; 97161-GP; 99285-25; C9803; G0378; U0003; U0005

== ENCOUNTER 2020-10-31 16:40 | Emergency (ER) | payer BC ==
[2020-10-31 16:47] VITALS: BP 174/72; PULSE 72; TEMP 98.4; BMI 26.8
== END 2020-10-31 17:44 | disposition home or self-care (01) ==
LOC: JER 16:40
DX: M79.602 Pain in left arm (principal); M79.605 Pain in left leg
CPT/HCPCS: 99282-25

== ENCOUNTER 2021-01-28 16:33 | Observation (INO) | payer BC ==
[2021-01-28] MEDS ORDERED: SODIUM CHLORIDE 0.9% 1000 ML INFUS.BAG IV ONE (17:34)
[2021-01-28] MEDS ORDERED: ACETAMINOPHEN 1000 MG/100 ML VIAL IVPB ONE (17:36)
[2021-01-28] MEDS ORDERED: LIDOCAINE 5% TOPICAL PATCH TP ONE (17:37)
[2021-01-28] MEDS ORDERED: LIDOCAINE 5% TOPICAL PATCH ONE (18:09)
[2021-01-28] MEDS ORDERED: ACETAMINOPHEN INJECTION 100 ML IVPB ONE (18:09)
[2021-01-28 18:38] LABS: BASO % 0.5 % (0-2.0); EOS % 1.3 % (0-4.5); HEMATOCRIT 37.8 % (32.4-45.2); HEMOGLOBIN 12.6 GM/dL (10.7-15.3); LYMPH % 25.4 % (8-40); MCH 27.3 pg (25.7-33.7); MCHC 33.4 g/dl (32.0-36.0); MEAN CELL VOLUME 81.9 fl (80-96); MONO % 13.1 % (3.8-10.2); NEUT % 59.7 % (42.8-82.8); PLATELET COUNT 182 10^3/uL (134-434); RBC 4.62 M/mm3 (3.60-5.2); RDW 13.6 % (11.6-15.6); WHITE BLOOD COUNT 5.2 K/mm3 (4.0-10.0)
[2021-01-28 18:39] LABS: VENOUS BASE EXCESS -0.1 mmol/L (-2-2); VENOUS O2 SATURATION 66.2 % (70-80); VENOUS PCO2 50.4 mmHg (38-52); VENOUS PH 7.34 (7.310-7.410)
[2021-01-28 18:48] LABS: INR 0.97 (0.83-1.09); PROTHROMBIN TIME (PATIENT) 11.3 SEC (9.7-13.0)
[2021-01-28 18:51] LABS: ACTIVATED PTT 29.3 SECONDS (25.2-36.5)
[2021-01-28 18:57] LABS: CHLORIDE 104 mmol/L (98-107); SODIUM 139 mmol/L (136-145)
[2021-01-28 18:59] LABS: CALCIUM 8.8 mg/dL (8.5-10.1)
[2021-01-28 19:00] LABS: ALBUMIN 3.1 g/dl (3.4-5.0); ANION GAP 8 MMOL/L (8-16); BLOOD UREA NITROGEN 20.4 mg/dL (7-18); CO2 27 mmol/L (21-32); GLUCOSE,RANDOM 302 mg/dL (74-106)
[2021-01-28 19:03] LABS: CREATININE 1.5 mg/dL (0.55-1.3); SGOT/AST 15 U/L (15-37); SGPT/ALT 18 U/L (13-61)
[2021-01-28 19:04] LABS: BILIRUBIN,TOTAL 0.2 mg/dL (0.2-1); TOT PROT 6.8 g/dl (6.4-8.2)
[2021-01-28 19:05] LABS: ALK PHOS 174 U/L (45-117)
[2021-01-28] MEDS ORDERED: SODIUM CHLORIDE 0.9% 500 ML INFUS.BAG IV ONE (19:26)
[2021-01-28] MEDS ORDERED: POLYETHYLENE GLYCOL (HEALTHYLAX) 3350 17 GM PACKET PO PRN (22:59)
[2021-01-28] MEDS ORDERED: ACETAMINOPHEN 325 MG TABLET (FP) PO PRN (22:59)
[2021-01-28] MEDS: SODIUM CHLORIDE 1,000 ML IV SCH (23:42)
[2021-01-29 00:05] LABS: EPI CELLS 2 /uL (0-25.1); HYALINE CASTS 1 /uL (0-3.1); URINE APPEARANCE CLEAR; URINE BACTERIA 15 /uL (0-1359); URINE BILIRUBIN NEGATIVE (NEGATIVE); URINE COLOR YELLOW; URINE GLUCOSE (UA) 1+ (NEGATIVE); URINE KETONE NEGATIVE (NEGATIVE); URINE LEUK ESTERASE NEGATIVE (NEGATIVE); URINE NITRITE NEGATIVE (NEGATIVE); URINE PROTEIN 2+ (NEGATIVE); URINE RBC 4 /uL (0-23.9); URINE UROBILINOGEN 0.2 mg/dL (0.2-1.0); URINE WBC 3 /uL (0-25.8)
[2021-01-29 06:52] LABS: BASO % 0.5 % (0-2.0); HEMATOCRIT 37.6 % (32.4-45.2); HEMOGLOBIN 12.6 GM/dL (10.7-15.3); LYMPH % 29.6 % (8-40); MCH 27.5 pg (25.7-33.7); MCHC 33.4 g/dl (32.0-36.0); MEAN CELL VOLUME 82.4 fl (80-96); MEAN PLT VOLUME 8.5 fl (7.5-11.1); MONO % 9.6 % (3.8-10.2); NEUT % 58.3 % (42.8-82.8); PLATELET COUNT 171 10^3/uL (134-434); RBC 4.56 M/mm3 (3.60-5.2); RDW 13.4 % (11.6-15.6); WHITE BLOOD COUNT 4.8 K/mm3 (4.0-10.0)
[2021-01-29 07:06] LABS: CHLORIDE 110 mmol/L (98-107); SODIUM 142 mmol/L (136-145)
[2021-01-29 07:08] LABS: ANION GAP 4 MMOL/L (8-16); CALCIUM 8.7 mg/dL (8.5-10.1); CO2 27 mmol/L (21-32); GLUCOSE,RANDOM 200 mg/dL (74-106); MAGNESIUM 2.3 mg/dL (1.8-2.4)
[2021-01-29 07:09] LABS: BLOOD UREA NITROGEN 15.8 mg/dL (7-18)
[2021-01-29 07:12] LABS: CREATININE 1.1 mg/dL (0.55-1.3)
[2021-01-29] MEDS ORDERED: ACETAMINOPHEN 1000 MG/100 ML VIAL IVPB ONE (08:04)
[2021-01-29] MEDS ORDERED: MAG HYDROX/AL HYDROX/SIMETH 30 ML UNIT-DOSE CUP PO PRN (08:04)
[2021-01-29] MEDS ORDERED: HEPARIN NA (PORCINE) 5,000 UNITS/ML 1ML VIAL ONE ×2 (08:22→14:24)
[2021-01-29] MEDS ORDERED: METOCLOPRAMIDE HCL 10 MG TABLET (FP) PO ONE (08:22)
[2021-01-29] MEDS: HEPARIN NA (PORCINE) 5,000 UNITS/ML 1ML VIAL SQ SCH ×2 (08:31→14:27)
[2021-01-29] MEDS: INSULIN SLIDING SCALE (NOVOLOG) 1 VIAL SQ SCH ×3 (08:59→17:15)
[2021-01-29] MEDS ORDERED: ASPIRIN 81 MG CHEWABLE TABLETS ONE (09:24)
[2021-01-29] MEDS ORDERED: GABAPENTIN 100 MG CAPSULE ONE (09:24)
[2021-01-29] MEDS ORDERED: PANTOPRAZOLE 20 MG TABLET PO ONE (09:24)
[2021-01-29] MEDS ORDERED: LORATADINE 10 MG TABLET ONE (09:24)
[2021-01-29] MEDS ORDERED: LIDOCAINE 5% TOPICAL PATCH ONE (09:25)
[2021-01-29] MEDS: amLODIPine BESYLATE 10 MG TABLET (FP) PO SCH (09:26)
[2021-01-29] MEDS: ANASTROZOLE 1 MG TABLET PO SCH (09:26)
[2021-01-29] MEDS: LORATADINE 10 MG TABLET PO SCH (09:26)
[2021-01-29] MEDS: GABAPENTIN 100 MG CAPSULE PO SCH (09:26)
[2021-01-29] MEDS: ASPIRIN 81 MG CHEWABLE TABLETS PO SCH (09:26)
[2021-01-29] MEDS: METOCLOPRAMIDE HCL 10 MG TABLET (FP) PO SCH ×3 (09:27→17:36)
[2021-01-29] MEDS: PANTOPRAZOLE 20 MG TABLET PO SCH (09:27)
[2021-01-29] MEDS: LIDOCAINE 5% TOPICAL PATCH TP SCH (09:33)
[2021-01-29] MEDS: SODIUM BICARBONATE 650 MG TABLET PO SCH (09:33)
[2021-01-29] MEDS ORDERED: PATIENT'S OWN MEDICATION (NON-FORMULARY) (Meloxicam [Meloxicam] 15 MG Tablet) PO SCH (10:00)
[2021-01-30] MEDS: LIDOCAINE PATCH REMOVAL MC SCH ×3 (06:12→06:13)
[2021-01-30] MEDS ORDERED: HEPARIN NA (PORCINE) 5,000 UNITS/ML 1ML VIAL ONE ×2 (06:16→15:29)
[2021-01-30] MEDS ORDERED: ATORVASTATIN CA 20 MG TABLET (FP) ONE (06:16)
[2021-01-30] MEDS ORDERED: GABAPENTIN 100 MG CAPSULE ONE ×2 (06:16→09:15)
[2021-01-30] MEDS: HEPARIN NA (PORCINE) 5,000 UNITS/ML 1ML VIAL SQ SCH ×3 (06:41→15:32)
[2021-01-30] MEDS: GABAPENTIN 100 MG CAPSULE PO SCH ×2 (06:42→09:13)
[2021-01-30] MEDS: ATORVASTATIN CA 20 MG TABLET (FP) PO SCH (06:42)
[2021-01-30] MEDS: SODIUM CHLORIDE 1,000 ML IV SCH (06:42)
[2021-01-30] MEDS: INSULIN SLIDING SCALE (NOVOLOG) 1 VIAL SQ SCH ×4 (06:52→16:57)
[2021-01-30] MEDS ORDERED: METOCLOPRAMIDE HCL 10 MG TABLET (FP) PO ONE ×3 (07:11→16:58)
[2021-01-30] MEDS: METOCLOPRAMIDE HCL 10 MG TABLET (FP) PO SCH ×3 (07:14→16:59)
[2021-01-30] MEDS ORDERED: ASPIRIN 81 MG CHEWABLE TABLETS ONE (08:51)
[2021-01-30] MEDS ORDERED: LORATADINE 10 MG TABLET ONE (08:51)
[2021-01-30] MEDS ORDERED: LIDOCAINE 5% TOPICAL PATCH ONE (08:51)
[2021-01-30] MEDS ORDERED: amLODIPine BESYLATE 5 MG TABLET (FP) ONE (08:51)
[2021-01-30] MEDS: ASPIRIN 81 MG CHEWABLE TABLETS PO SCH (09:13)
[2021-01-30] MEDS: LORATADINE 10 MG TABLET PO SCH (09:13)
[2021-01-30] MEDS: LIDOCAINE 5% TOPICAL PATCH TP SCH (09:13)
[2021-01-30] MEDS: ANASTROZOLE 1 MG TABLET PO SCH (09:13)
[2021-01-30] MEDS ORDERED: PANTOPRAZOLE 20 MG TABLET PO ONE (09:14)
[2021-01-30] MEDS: amLODIPine BESYLATE 10 MG TABLET (FP) PO SCH (09:14)
[2021-01-30] MEDS: PANTOPRAZOLE 20 MG TABLET PO SCH (09:14)
[2021-01-30] MEDS: SODIUM BICARBONATE 650 MG TABLET PO SCH (09:14)
[2021-01-31] MEDS: LIDOCAINE PATCH REMOVAL MC SCH ×4 (04:57→22:40)
[2021-01-31] MEDS: GABAPENTIN 100 MG CAPSULE PO SCH ×3 (04:57→22:38)
[2021-01-31] MEDS: HEPARIN NA (PORCINE) 5,000 UNITS/ML 1ML VIAL SQ SCH ×4 (04:57→22:39)
[2021-01-31] MEDS: ATORVASTATIN CA 20 MG TABLET (FP) PO SCH ×2 (04:57→22:38)
[2021-01-31] MEDS: INSULIN SLIDING SCALE (NOVOLOG) 1 VIAL SQ SCH ×5 (04:57→22:40)
[2021-01-31 08:14] LABS: BASO % 0.8 % (0-2.0); EOS % 2.1 % (0-4.5); HEMATOCRIT 36.4 % (32.4-45.2); HEMOGLOBIN 12.3 GM/dL (10.7-15.3); LYMPH % 27.7 % (8-40); MCH 28.1 pg (25.7-33.7); MCHC 33.9 g/dl (32.0-36.0); MEAN PLT VOLUME 8.3 fl (7.5-11.1); NEUT % 60.4 % (42.8-82.8); PLATELET COUNT 175 10^3/uL (134-434); RBC 4.39 M/mm3 (3.60-5.2); RDW 13.5 % (11.6-15.6); WHITE BLOOD COUNT 3.8 K/mm3 (4.0-10.0)
[2021-01-31 08:33] LABS: ALBUMIN 2.5 g/dl (3.4-5.0); BLOOD UREA NITROGEN 19.4 mg/dL (7-18)
[2021-01-31 08:36] LABS: CREATININE 1.3 mg/dL (0.55-1.3)
[2021-01-31 08:38] LABS: BILIRUBIN,TOTAL 0.4 mg/dL (0.2-1); TOT PROT 6.2 g/dl (6.4-8.2)
[2021-01-31] MEDS ORDERED: ASPIRIN 81 MG CHEWABLE TABLETS ONE (10:40)
[2021-01-31] MEDS ORDERED: PANTOPRAZOLE 20 MG TABLET PO ONE (10:40)
[2021-01-31] MEDS ORDERED: amLODIPine BESYLATE 5 MG TABLET (FP) ONE (10:40)
[2021-01-31] MEDS ORDERED: LORATADINE 10 MG TABLET ONE (10:40)
[2021-01-31] MEDS ORDERED: GABAPENTIN 100 MG CAPSULE ONE (10:40)
[2021-01-31] MEDS ORDERED: METOCLOPRAMIDE HCL 10 MG TABLET (FP) PO ONE ×2 (10:41→16:40)
[2021-01-31] MEDS ORDERED: PT OWN MED DRAWER 7, Y5N ONE (10:41)
[2021-01-31] MEDS: hydrALAZINE HCL 10 MG TABLET PO SCH ×2 (10:53→22:38)
[2021-01-31] MEDS: METOCLOPRAMIDE HCL 10 MG TABLET (FP) PO SCH ×3 (10:53→16:47)
[2021-01-31] MEDS: ANASTROZOLE 1 MG TABLET PO SCH (10:55)
[2021-01-31] MEDS: LIDOCAINE 5% TOPICAL PATCH TP SCH (10:55)
[2021-01-31] MEDS: amLODIPine BESYLATE 10 MG TABLET (FP) PO SCH (10:55)
[2021-01-31] MEDS: LORATADINE 10 MG TABLET PO SCH (10:55)
[2021-01-31] MEDS: ASPIRIN 81 MG CHEWABLE TABLETS PO SCH (10:55)
[2021-01-31] MEDS: PANTOPRAZOLE 20 MG TABLET PO SCH (10:56)
[2021-01-31] MEDS: SODIUM BICARBONATE 650 MG TABLET PO SCH (14:42)
[2021-02-01 01:46] VITALS: BMI 27.3
[2021-02-01] MEDS: HEPARIN NA (PORCINE) 5,000 UNITS/ML 1ML VIAL SQ SCH ×2 (06:42→14:16)
[2021-02-01] MEDS: METOCLOPRAMIDE HCL 10 MG TABLET (FP) PO SCH ×3 (06:43→17:29)
[2021-02-01] MEDS: INSULIN SLIDING SCALE (NOVOLOG) 1 VIAL SQ SCH ×3 (06:43→17:29)
[2021-02-01] MEDS ORDERED: INSULIN (LEVEMIR) 100 UNITS/ML UNITS SQ SCH (09:15)
[2021-02-01] MEDS: amLODIPine BESYLATE 10 MG TABLET (FP) PO SCH (10:38)
[2021-02-01] MEDS: ASPIRIN 81 MG CHEWABLE TABLETS PO SCH (10:38)
[2021-02-01] MEDS: GABAPENTIN 100 MG CAPSULE PO SCH (10:39)
[2021-02-01] MEDS: hydrALAZINE HCL 10 MG TABLET PO SCH (10:39)
[2021-02-01] MEDS: SODIUM BICARBONATE 650 MG TABLET PO SCH (10:39)
[2021-02-01] MEDS: PANTOPRAZOLE 20 MG TABLET PO SCH (10:39)
[2021-02-01] MEDS: LORATADINE 10 MG TABLET PO SCH (10:39)
[2021-02-01] MEDS: LIDOCAINE 5% TOPICAL PATCH TP SCH (10:40)
[2021-02-01] MEDS: ANASTROZOLE 1 MG TABLET PO SCH (10:42)
[2021-02-01 12:15] VITALS: TEMP 98.4
[2021-02-01 15:55] VITALS: BP 139/66; PULSE 65
== END 2021-02-01 18:20 | disposition home health service (06) ==
LOC: JER 16:33 → INTOOBSV 22:18 → JERBED 22:18 → J4W 01-31 21:01
PROVIDERS: ATTEND Family Medicine
PROC: 3E033NZ Introduction of Analgesics, Hypnotics, Sedatives into Peripheral Vein, Percutaneous Approach (ICD-10-PCS; principal; 2021-01-28)
PROC: 3E023GC Introduction of Other Therapeutic Substance into Muscle, Percutaneous Approach (ICD-10-PCS; 2021-01-28)
PROC: 3E0337Z Introduction of Electrolytic and Water Balance Substance into Peripheral Vein, Percutaneous Approach (ICD-10-PCS; 2021-01-28)
DX: I25.10 Atherosclerotic heart disease of native coronary artery without angina pectoris (principal); I95.1 Orthostatic hypotension; E11.65 Type 2 diabetes mellitus with hyperglycemia; M54.9 Dorsalgia, unspecified; M79.662 Pain in left lower leg; Z88.6 Allergy status to analgesic agent; I10 Essential (primary) hypertension; E78.5 Hyperlipidemia, unspecified; I11.9 Hypertensive heart disease without heart failure; Z86.39 Personal history of other endocrine, nutritional and metabolic disease; Z85.07 Personal history of malignant neoplasm of pancreas; Z85.3 Personal history of malignant neoplasm of breast
CPT/HCPCS: 36415; 70450-TC; 71045-TC-FY; 71275-TC; 74174-TC; 80048; 80053; 81003; 82010; 82803; 82962; 83036; 83735; 84484; 85025; 85610; 85730; 86850; 86900; 86901; 87086; 93005; 93010; 93306-TC; 96361; 96372; 96374; 96376; 99285-25; C9803; G0378; J0131; J1644; U0003; U0005

== ENCOUNTER 2021-03-28 21:46 | Observation (INO) | payer BC ==
[2021-03-28 22:04] VITALS: BMI 27.6
[2021-03-28] MEDS ORDERED: LACTATED RINGERS SOLUTION 1000 ML INFUS.BAG IV ONE (22:52)
[2021-03-28 23:30] LABS: BASO % 0.7 % (0-2.0); EOS % 1.5 % (0-4.5); HEMATOCRIT 36.9 % (32.4-45.2); HEMOGLOBIN 12.4 GM/dL (10.7-15.3); LYMPH % 16.3 % (8-40); MCH 27.6 pg (25.7-33.7); MCHC 33.7 g/dl (32.0-36.0); MEAN CELL VOLUME 81.9 fl (80-96); MEAN PLT VOLUME 7.6 fl (7.5-11.1); MONO % 9.8 % (3.8-10.2); NEUT % 71.7 % (42.8-82.8); PLATELET COUNT 172 10^3/uL (134-434); RDW 14.4 % (11.6-15.6); WHITE BLOOD COUNT 4.9 K/mm3 (4.0-10.0)
[2021-03-28 23:54] LABS: BLOOD UREA NITROGEN 21.2 mg/dL (7-18); MAGNESIUM 2.3 mg/dL (1.8-2.4)
[2021-03-28 23:57] LABS: ACTIVATED PTT 30.4 SECONDS (25.2-36.5); CREATININE 1.5 mg/dL (0.55-1.3)
[2021-03-28 23:59] LABS: BILIRUBIN,TOTAL 0.4 mg/dL (0.2-1); TOT PROT 6.9 g/dl (6.4-8.2)
[2021-03-29 00:10] LABS: INR 1.08 (0.83-1.09); PROTHROMBIN TIME (PATIENT) 12.4 SEC (9.7-13.0)
[2021-03-29 02:10] LABS: CALCIUM 8.5 mg/dL (8.5-10.1)
[2021-03-29 02:14] LABS: CREATININE 1.3 mg/dL (0.55-1.3)
[2021-03-29] MEDS ORDERED: ACETAMINOPHEN 325 MG TABLET (FP) PO PRN (04:18)
[2021-03-29] MEDS ORDERED: POLYETHYLENE GLYCOL 3350 119 GM BTL PO PRN (04:18)
[2021-03-29] MEDS ORDERED: MAG HYDROX/AL HYDROX/SIMETH 30 ML UNIT-DOSE CUP PO PRN (05:59)
[2021-03-29] MEDS ORDERED: METOCLOPRAMIDE HCL 5 MG PO SCH (06:00)
[2021-03-29] MEDS ORDERED: MECLIZINE HCL 12.5 MG TABLET PO PRN (06:29)
[2021-03-29] MEDS ORDERED: METOCLOPRAMIDE HCL 10 MG TABLET (FP) PO ONE ×3 (07:02→22:13)
[2021-03-29] MEDS: DEXTROSE 5%-NORMAL SALINE 1,000 ML IV SCH (07:12)
[2021-03-29] MEDS: HEPARIN NA (PORCINE) 5,000 UNITS/ML 1ML VIAL SQ SCH ×3 (07:12→22:29)
[2021-03-29] MEDS: INSULIN SLIDING SCALE (NOVOLOG) 1 VIAL SQ SCH ×4 (07:13→22:51)
[2021-03-29] MEDS ORDERED: PATIENT'S OWN MEDICATION (NON-FORMULARY) (Meloxicam [Meloxicam] 15 MG Tablet) PO SCH (10:00)
[2021-03-29] MEDS ORDERED: PANTOPRAZOLE SOD 40 MG SUSPENSION PACKET PO SCH (10:00)
[2021-03-29] MEDS ORDERED: ASPIRIN 81 MG CHEWABLE TABLETS ONE (10:37)
[2021-03-29] MEDS ORDERED: GABAPENTIN 100 MG CAPSULE ONE ×2 (10:37→22:12)
[2021-03-29] MEDS ORDERED: LIDOCAINE 5% TOPICAL PATCH ONE (10:38)
[2021-03-29] MEDS ORDERED: amLODIPine BESYLATE 10 MG TABLET (FP) ONE (10:43)
[2021-03-29] MEDS ORDERED: LORATADINE 10 MG TABLET ONE (10:44)
[2021-03-29] MEDS: LORATADINE 10 MG TABLET PO SCH (10:54)
[2021-03-29] MEDS: LIDOCAINE 5% TOPICAL PATCH TP SCH (10:54)
[2021-03-29] MEDS: ASPIRIN 81 MG CHEWABLE TABLETS PO SCH (10:54)
[2021-03-29] MEDS: amLODIPine BESYLATE 10 MG TABLET (FP) PO SCH (10:55)
[2021-03-29] MEDS: GABAPENTIN 100 MG CAPSULE PO SCH ×2 (10:55→22:30)
[2021-03-29] MEDS: PRAMIPEXOLE DIHYDROCHLORIDE 0.5 MG TABLET PO SCH ×2 (12:54→22:51)
[2021-03-29] MEDS: ANASTROZOLE 1 MG TABLET PO SCH (12:54)
[2021-03-29] MEDS: SODIUM BICARBONATE 650 MG TABLET PO SCH (12:55)
[2021-03-29] MEDS: hydrALAZINE HCL 10 MG TABLET PO SCH ×3 (12:55→22:29)
[2021-03-29] MEDS: METOCLOPRAMIDE HCL 10 MG TABLET (FP) PO SCH ×2 (14:55→22:30)
[2021-03-29] MEDS ORDERED: HEPARIN NA (PORCINE) 5,000 UNITS/ML 1ML VIAL ONE ×2 (17:45→22:13)
[2021-03-29 20:09] LABS: EPI CELLS 2 /uL (0-25.1); HYALINE CASTS 0 /uL (0-3.1); PH,URINE 6.5 (5.0-8.0); URINE APPEARANCE CLEAR; URINE BACTERIA 6 /uL (0-1359); URINE BILIRUBIN NEGATIVE (NEGATIVE); URINE COLOR YELLOW; URINE GLUCOSE (UA) 3+ (NEGATIVE); URINE KETONE NEGATIVE (NEGATIVE); URINE LEUK ESTERASE NEGATIVE (NEGATIVE); URINE NITRITE NEGATIVE (NEGATIVE); URINE PROTEIN 2+ (NEGATIVE); URINE RBC 0 /uL (0-23.9); URINE UROBILINOGEN 0.2 mg/dL (0.2-1.0); URINE WBC 3 /uL (0-25.8)
[2021-03-29] MEDS ORDERED: LIDOCAINE PATCH REMOVAL MC SCH (22:00)
[2021-03-29] MEDS ORDERED: ATORVASTATIN CA 20 MG TABLET (FP) ONE (22:12)
[2021-03-29] MEDS ORDERED: hydrALAZINE HCL 25 MG TABLET (FP) ONE (22:12)
[2021-03-29] MEDS: ATORVASTATIN CA 20 MG TABLET (FP) PO SCH (22:29)
[2021-03-30] MEDS: DEXTROSE 5%-NORMAL SALINE 1,000 ML IV SCH ×2 (05:54→17:58)
[2021-03-30] MEDS: HEPARIN NA (PORCINE) 5,000 UNITS/ML 1ML VIAL SQ SCH ×3 (05:55→22:23)
[2021-03-30] MEDS: INSULIN SLIDING SCALE (NOVOLOG) 1 VIAL SQ SCH ×4 (07:27→22:26)
[2021-03-30 08:04] LABS: BASO % 0.3 % (0-2.0); EOS % 1.9 % (0-4.5); HEMATOCRIT 37.5 % (32.4-45.2); HEMOGLOBIN 12.2 GM/dL (10.7-15.3); LYMPH % 30.7 % (8-40); MCH 27.1 pg (25.7-33.7); MCHC 32.6 g/dl (32.0-36.0); MEAN CELL VOLUME 83.3 fl (80-96); MEAN PLT VOLUME 8.3 fl (7.5-11.1); MONO % 8.2 % (3.8-10.2); NEUT % 58.9 % (42.8-82.8); PLATELET COUNT 169 10^3/uL (134-434); RDW 13.9 % (11.6-15.6); WHITE BLOOD COUNT 3.5 K/mm3 (4.0-10.0)
[2021-03-30 08:09] LABS: CALCIUM 8.7 mg/dL (8.5-10.1)
[2021-03-30 08:10] LABS: BLOOD UREA NITROGEN 19.8 mg/dL (7-18)
[2021-03-30 08:13] LABS: CREATININE 1.2 mg/dL (0.55-1.3)
[2021-03-30] MEDS ORDERED: LORATADINE 10 MG TABLET ONE (09:22)
[2021-03-30] MEDS ORDERED: amLODIPine BESYLATE 10 MG TABLET (FP) ONE (09:22)
[2021-03-30] MEDS ORDERED: LIDOCAINE 5% TOPICAL PATCH ONE (09:22)
[2021-03-30] MEDS ORDERED: ASPIRIN 81 MG CHEWABLE TABLETS ONE (09:22)
[2021-03-30] MEDS ORDERED: PANTOPRAZOLE 20 MG TABLET PO ONE (09:36)
[2021-03-30] MEDS: hydrALAZINE HCL 10 MG TABLET PO SCH ×2 (09:42→22:27)
[2021-03-30] MEDS: PRAMIPEXOLE DIHYDROCHLORIDE 0.5 MG TABLET PO SCH ×2 (09:42→22:27)
[2021-03-30] MEDS: LORATADINE 10 MG TABLET PO SCH (09:42)
[2021-03-30] MEDS: ANASTROZOLE 1 MG TABLET PO SCH (09:42)
[2021-03-30] MEDS: LIDOCAINE 5% TOPICAL PATCH TP SCH (09:42)
[2021-03-30] MEDS: ASPIRIN 81 MG CHEWABLE TABLETS PO SCH (09:42)
[2021-03-30] MEDS: amLODIPine BESYLATE 10 MG TABLET (FP) PO SCH (09:43)
[2021-03-30] MEDS: PANTOPRAZOLE 20 MG TABLET PO SCH (09:43)
[2021-03-30] MEDS: SODIUM BICARBONATE 650 MG TABLET PO SCH (09:43)
[2021-03-30] MEDS ORDERED: HEPARIN NA (PORCINE) 5,000 UNITS/ML 1ML VIAL ONE (13:46)
[2021-03-30] MEDS: ATORVASTATIN CA 20 MG TABLET (FP) PO SCH (22:23)
[2021-03-31] MEDS: HEPARIN NA (PORCINE) 5,000 UNITS/ML 1ML VIAL SQ SCH ×2 (06:07→16:04)
[2021-03-31] MEDS: INSULIN SLIDING SCALE (NOVOLOG) 1 VIAL SQ SCH ×2 (06:11→12:36)
[2021-03-31] MEDS: DEXTROSE 5%-NORMAL SALINE 1,000 ML IV SCH (06:11)
[2021-03-31] MEDS: ASPIRIN 81 MG CHEWABLE TABLETS PO SCH (09:57)
[2021-03-31] MEDS: hydrALAZINE HCL 10 MG TABLET PO SCH (09:57)
[2021-03-31] MEDS: PRAMIPEXOLE DIHYDROCHLORIDE 0.5 MG TABLET PO SCH (09:58)
[2021-03-31] MEDS: LIDOCAINE 5% TOPICAL PATCH TP SCH (09:58)
[2021-03-31] MEDS: ANASTROZOLE 1 MG TABLET PO SCH (09:58)
[2021-03-31] MEDS: PANTOPRAZOLE 20 MG TABLET PO SCH (09:58)
[2021-03-31] MEDS: amLODIPine BESYLATE 10 MG TABLET (FP) PO SCH (09:58)
[2021-03-31] MEDS: LORATADINE 10 MG TABLET PO SCH (09:58)
[2021-03-31 14:00] VITALS: BP 137/63; PULSE 94; TEMP 98.4
== END 2021-03-31 16:59 | disposition home health service (06) ==
LOC: JER 21:46 → JERBED 03-29 03:12 → J4W 03-30 16:02
PROVIDERS: ADMIT Hospitalist; ATTEND Family Medicine
PROC: 3E013VG Introduction of Insulin into Subcutaneous Tissue, Percutaneous Approach (ICD-10-PCS; principal; 2021-03-29)
PROC: 3E0337Z Introduction of Electrolytic and Water Balance Substance into Peripheral Vein, Percutaneous Approach (ICD-10-PCS; 2021-03-29)
DX: I13.10 Hypertensive heart and chronic kidney disease without heart failure, with stage 1 through stage 4 chronic kidney disease, or unspecified chronic kidney disease (principal); I25.10 Atherosclerotic heart disease of native coronary artery without angina pectoris; R00.1 Bradycardia, unspecified; Z95.5 Presence of coronary angioplasty implant and graft; I11.9 Hypertensive heart disease without heart failure; K21.9 Gastro-esophageal reflux disease without esophagitis; Z85.3 Personal history of malignant neoplasm of breast; Z88.6 Allergy status to analgesic agent; Z85.07 Personal history of malignant neoplasm of pancreas; R79.89 Other specified abnormal findings of blood chemistry; N17.9 Acute kidney failure, unspecified; Z29.9 Encounter for prophylactic measures, unspecified; E11.21 Type 2 diabetes mellitus with diabetic nephropathy; E11.22 Type 2 diabetes mellitus with diabetic chronic kidney disease; N18.9 Chronic kidney disease, unspecified
CPT/HCPCS: 36415; 70450-TC; 71045-TC-FY; 80048; 80053; 81003; 82962; 83735; 83880; 84439; 84443; 84479; 84484; 85025; 85610; 85730; 87086; 93005; 93010; 96360; 96372; 97116-GP; 97161-GP; 99285-25; C9803; G0378; J1644; U0003; U0005

== ENCOUNTER → 2023-04-26 | Day surgery (SDC) | payer BC, OTHER | END | disposition home or self-care (01) | LOC: FRADUS-SUR 09:50 | PROVIDERS: ATTEND Surgery | PROC: 0HBT3ZX Excision of Right Breast, Percutaneous Approach, Diagnostic (ICD-10-PCS; principal; 2023-04-26) | DX: D05.11 Intraductal carcinoma in situ of right breast (principal); N64.52 Nipple discharge | CPT/HCPCS: 19085; 77065-TC; 88305-TC; A4648 ==

== ENCOUNTER 2023-05-01 09:29 | Observation (INO) | payer BC, OTHER ==
[2023-05-01] MEDS ORDERED: ACETAMINOPHEN 325 MG TABLET (FP) ONE (10:24)
[2023-05-01] MEDS ORDERED: MECLIZINE HCL 25 MG TABLET (FP) ONE (10:24)
[2023-05-01] MEDS: ACETAMINOPHEN 500 MG TABLET (FP) PO ONE (10:58)
[2023-05-01] MEDS: MECLIZINE HCL 25 MG TABLET (FP) PO ONE (10:58)
[2023-05-01] MEDS: amLODIPine BESYLATE 10 MG TABLET (FP) PO ONE (10:58)
[2023-05-01] MEDS ORDERED: amLODIPine BESYLATE 10 MG TABLET (FP) ONE (10:59)
[2023-05-01 11:15] LABS: BASO % 0.6 % (0-2.0); EOS % 1.5 % (0-4.5); HEMATOCRIT 34.7 % (32.4-45.2); HEMOGLOBIN 11.5 GM/dL (10.7-15.3); LYMPH % 25.7 % (8-40); MCH 26.9 pg (25.7-33.7); MCHC 33.2 g/dl (32.0-36.0); MEAN CELL VOLUME 81.2 fl (80-96); MEAN PLT VOLUME 8.1 fl (7.5-11.1); NEUT % 64.2 % (42.8-82.8); PLATELET COUNT 255 10^3/uL (134-434); RBC 4.28 M/mm3 (3.60-5.2); RDW 15.2 % (11.6-15.6); WHITE BLOOD COUNT 5.5 K/mm3 (4.0-10.0)
[2023-05-01 11:25] LABS: POTASSIUM 4.9 mmol/L (3.5-5.1)
[2023-05-01 11:28] LABS: ALBUMIN 2.9 g/dl (3.4-5.0)
[2023-05-01 11:31] LABS: CREATININE 1.3 mg/dL (0.55-1.3)
[2023-05-01 11:33] LABS: BILIRUBIN,TOTAL 0.3 mg/dL (0.2-1); TOT PROT 6.8 g/dl (6.4-8.2)
[2023-05-01] MEDS ORDERED: LOSARTAN POTASSIUM 50 MG TABLET ONE (17:10)
[2023-05-01] MEDS ORDERED: ASPIRIN COATED 81 MG TABLET.EC ONE (17:10)
[2023-05-01] MEDS: ASPIRIN COATED 81 MG TABLET.EC PO SCH (17:16)
[2023-05-01] MEDS: LOSARTAN POTASSIUM 50 MG TABLET PO SCH (17:16)
[2023-05-01] MEDS: INSULIN ASPART SLIDING SCALE (NOVOLOG) 1 VIAL SQ SCH (17:17)
[2023-05-01] MEDS ORDERED: INSULIN (NOVOLOG) ASPART 100 UNITS/ML 10ML VIAL ONE (17:23)
[2023-05-01] MEDS ORDERED: INSULIN (LEVEMIR) 100 UNITS/ML UNITS SQ ONE (17:24)
[2023-05-01 23:01] LABS: EPI CELLS 3 /uL (0-25.1); HYALINE CASTS 0 /uL (0-3.1); URINE APPEARANCE CLEAR; URINE BACTERIA 6 /uL (0-1359); URINE BILIRUBIN NEGATIVE (NEGATIVE); URINE COLOR YELLOW; URINE GLUCOSE (UA) 3+ (NEGATIVE); URINE KETONE NEGATIVE (NEGATIVE); URINE LEUK ESTERASE NEGATIVE (NEGATIVE); URINE NITRITE NEGATIVE (NEGATIVE); URINE PROTEIN 2+ (NEGATIVE); URINE RBC 12 /uL (0-23.9); URINE UROBILINOGEN 0.2 mg/dL (0.2-1.0); URINE WBC 5 /uL (0-25.8)
[2023-05-02] MEDS ORDERED: INSULIN (NOVOLOG) ASPART 100 UNITS/ML 10ML VIAL ONE (00:19)
[2023-05-02 02:04] VITALS: BMI 26.4
[2023-05-02 06:40] VITALS: RESP 18
[2023-05-02 07:09] LABS: HEMATOCRIT 33.2 % (32.4-45.2); HEMOGLOBIN 10.7 GM/dL (10.7-15.3); MCH 26.6 pg (25.7-33.7); MCHC 32.3 g/dl (32.0-36.0); MEAN CELL VOLUME 82.3 fl (80-96); MEAN PLT VOLUME 7.9 fl (7.5-11.1); PLATELET COUNT 207 10^3/uL (134-434); RBC 4.04 M/mm3 (3.60-5.2); RDW 15.4 % (11.6-15.6); WHITE BLOOD COUNT 4.6 K/mm3 (4.0-10.0)
[2023-05-02 07:29] LABS: POTASSIUM 4.7 mmol/L (3.5-5.1)
[2023-05-02 07:31] LABS: CALCIUM 8.6 mg/dL (8.5-10.1)
[2023-05-02 07:33] LABS: BLOOD UREA NITROGEN 25.4 mg/dL (7-18); MAGNESIUM 2.3 mg/dL (1.8-2.4)
[2023-05-02 07:36] LABS: CREATININE 1.2 mg/dL (0.55-1.3); PHOSPHOROUS 4.3 mg/dL (2.5-4.9)
[2023-05-02] MEDS: amLODIPine BESYLATE 10 MG TABLET (FP) PO SCH (09:54)
[2023-05-02] MEDS: hydrALAZINE HCL 50 MG TABLET (FP) PO SCH (13:24)
[2023-05-02] MEDS: SODIUM CHLORIDE 1,000 ML IV SCH (16:50)
[2023-05-03 08:11] LABS: POTASSIUM 5.5 mmol/L (3.5-5.1)
[2023-05-03 08:16] LABS: CALCIUM 8.6 mg/dL (8.5-10.1)
[2023-05-03 08:18] LABS: ALBUMIN 2.5 g/dl (3.4-5.0); BLOOD UREA NITROGEN 27.1 mg/dL (7-18)
[2023-05-03 08:20] LABS: CREATININE 1.3 mg/dL (0.55-1.3)
[2023-05-03 08:22] LABS: BILIRUBIN,TOTAL 0.3 mg/dL (0.2-1); TOT PROT 5.7 g/dl (6.4-8.2)
[2023-05-03] MEDS ORDERED: POLYETHYLENE GLYCOL (HEALTHYLAX) 3350 17 GM PACKET PO PRN (08:33)
[2023-05-03] MEDS: ASPIRIN 81 MG CHEWABLE TABLETS PO SCH (09:17)
[2023-05-03] MEDS: ANASTROZOLE 1 MG TABLET PO SCH (11:16)
[2023-05-03] MEDS: SODIUM ZIRCONIUM CYCLOSILICATE (LOKELMA) 5 GM PACKET PO SCH (12:33)
[2023-05-03] MEDS: POLYETHYLENE GLYCOL (HEALTHYLAX) 3350 17 GM PACKET PO SCH (12:33)
[2023-05-03] MEDS: ATORVASTATIN CA 20 MG TABLET (FP) PO SCH (21:04)
[2023-05-04 08:14] LABS: POTASSIUM 4.9 mmol/L (3.5-5.1)
[2023-05-04 08:19] LABS: CALCIUM 8.8 mg/dL (8.5-10.1)
[2023-05-04 08:20] LABS: BLOOD UREA NITROGEN 28.9 mg/dL (7-18)
[2023-05-04 08:23] LABS: CREATININE 1.3 mg/dL (0.55-1.3)
[2023-05-04] MEDS ORDERED: NEBIVOLOL 10 MG TABLET (FP) PO SCH (10:00)
[2023-05-04] MEDS: INSULIN (LEVEMIR) 100 UNITS/ML UNITS SQ SCH (10:41)
[2023-05-04 12:29] VITALS: BP 162/67; PULSE 89; TEMP 97.9
[2023-05-04 23:08] LABS: CARCINOEMBRYONIC ANTIGEN 5.2 ng/mL (0.0-4.7)
== END 2023-05-04 13:27 | disposition home health service (06) ==
LOC: JER 09:29 → JERBED 14:42 → J4S 05-02 00:52
PROVIDERS: ADMIT Internal Medicine; ATTEND Internal Medicine
PROC: 3E013VG Introduction of Insulin into Subcutaneous Tissue, Percutaneous Approach (ICD-10-PCS; principal; 2023-05-01)
PROC: 3E0337Z Introduction of Electrolytic and Water Balance Substance into Peripheral Vein, Percutaneous Approach (ICD-10-PCS; 2023-05-01)
DX: R26.81 Unsteadiness on feet (principal); D05.10 Intraductal carcinoma in situ of unspecified breast; E11.22 Type 2 diabetes mellitus with diabetic chronic kidney disease; I12.0 Hypertensive chronic kidney disease with stage 5 chronic kidney disease or end stage renal disease; K59.00 Constipation, unspecified; E11.21 Type 2 diabetes mellitus with diabetic nephropathy; N18.6 End stage renal disease; Z99.2 Dependence on renal dialysis; C25.9 Malignant neoplasm of pancreas, unspecified; I25.10 Atherosclerotic heart disease of native coronary artery without angina pectoris; I11.0 Hypertensive heart disease with heart failure; N28.9 Disorder of kidney and ureter, unspecified; R42 Dizziness and giddiness; G43.909 Migraine, unspecified, not intractable, without status migrainosus; E78.5 Hyperlipidemia, unspecified; Z91.148 Patient's other noncompliance with medication regimen for other reason
CPT/HCPCS: 36415; 70450-TC; 70553-TC; 71045-TC-FY; 76775-TC; 80048; 80053; 81003; 82378; 82607; 82962; 83036; 83735; 84100; 84443; 84484; 85025; 85027; 86301; 87086; 87186; 93005; 93010; 93306-TC; 93880-TC; 96360; 96372; 97116-GP; 97161-GP; 99285-25; G0378

== ENCOUNTER 2023-05-22 03:50 | Day surgery (SDC) | payer BC, OTHER ==
[2023-05-17 10:53] VITALS: BMI 26.4
[2023-05-22] MEDS: BACITRACIN ZINC 15 GM TUBE TOPICAL OINTMENT TP ONE
[2023-05-22] MEDS: LIDOCAINE HCL 0.5% EPINEPHRINE 1:200,000 50 ML VIAL IJ ONE
[2023-05-22] MEDS ORDERED: oxyCODONE HCL 5 MG TABLET PO PRN (10:45)
[2023-05-22] MEDS ORDERED: LACTATED RINGERS SOLUTION 1,000 ML IV SCH (10:45)
[2023-05-22] MEDS ORDERED: ONDANSETRON 4 MG/2 ML VIAL IVPUSH PRN (10:45)
[2023-05-22] MEDS ORDERED: ACETAMINOPHEN 325 MG TABLET (FP) PO PRN (10:45)
[2023-05-22] MEDS ORDERED: LIDOCAINE HCL 1%, 10 MG/ML (20ML VIAL) ONE (10:56)
[2023-05-22] MEDS ORDERED: BACITRACIN ZINC 15 GM TUBE TOPICAL OINTMENT ONE (10:56)
[2023-05-22] MEDS ORDERED: PROPOFOL 20 ML ONE (11:17)
[2023-05-22] MEDS ORDERED: FENTANYL CITRATE/PF 50 MCG/ML VIAL ONE ×3 (11:17→13:01)
[2023-05-22] MEDS ORDERED: METHYLENE BLUE 50 MG/10 ML AMPUL ONE (11:17)
[2023-05-22] MEDS ORDERED: ACETAMINOPHEN INJECTION 100 ML IVPB ONE (11:27)
[2023-05-22] MEDS: ceFAZolin SODIUM 1 GM VIAL IVPB ONE ×2 (11:36)
[2023-05-22] MEDS: LIDOCAINE HCL 1%, 10 MG/ML (20ML VIAL) NR ONE ×2 (11:37)
[2023-05-22 14:41] VITALS: RESP 20
[2023-05-22] MEDS ORDERED: oxyCODONE HCL 5 MG TABLET ONE (14:50)
[2023-05-22 15:21] VITALS: TEMP 97.5
[2023-05-22 16:55] VITALS: BP 137/62; PULSE 71
== END 2023-05-22 16:25 | disposition home or self-care (01) ==
LOC: JASU-SURG 03:50
PROVIDERS: ATTEND Surgery
PROC: 0HBT0ZZ Excision of Right Breast, Open Approach (ICD-10-PCS; principal; 2023-05-22 10:30)
DX: D05.11 Intraductal carcinoma in situ of right breast (principal)
CPT/HCPCS: 19281; 76098-TC-FY; 82962; 88307-TC; 94760; A4648; J0131; Q9968

== ENCOUNTER 2023-07-25 17:29 | Observation (INO) | payer BC, OTHER ==
[2023-07-25] MEDS ORDERED: ACETAMINOPHEN INJECTION 100 ML IVPB ONE (19:05)
[2023-07-25] MEDS: ACETAMINOPHEN 1000 MG/100 ML BAG IVPB ONE (19:14)
[2023-07-25 19:20] LABS: BASO % 0.4 % (0-2.0); EOS % 0.9 % (0-4.5); HEMATOCRIT 36.6 % (32.4-45.2); LYMPH % 8.1 % (8-40); MCH 26.7 pg (25.7-33.7); MCHC 32.8 g/dl (32.0-36.0); MEAN CELL VOLUME 81.3 fl (80-96); MEAN PLT VOLUME 7.7 fl (7.5-11.1); MONO % 8.6 % (3.8-10.2); PLATELET COUNT 225 10^3/uL (134-434); RBC 4.51 M/mm3 (3.60-5.2); RDW 14.3 % (11.6-15.6); WHITE BLOOD COUNT 6.5 K/mm3 (4.0-10.0)
[2023-07-25 19:43] LABS: POTASSIUM 4.3 mmol/L (3.5-5.1)
[2023-07-25 19:46] LABS: CALCIUM 9.9 mg/dL (8.5-10.1)
[2023-07-25 19:47] LABS: ALBUMIN 3.8 g/dl (3.4-5.0); BLOOD UREA NITROGEN 31.8 mg/dL (7-18)
[2023-07-25 19:50] LABS: CREATININE 1.6 mg/dL (0.55-1.3)
[2023-07-25 19:52] LABS: BILIRUBIN,TOTAL 0.7 mg/dL (0.2-1); TOT PROT 7.7 g/dl (6.4-8.2)
[2023-07-25] MEDS: SODIUM CHLORIDE 0.9% 500 ML INFUS.BAG IV ONE (20:44)
[2023-07-26] MEDS: LACTATED RINGERS SOLUTION 1000 ML INFUS.BAG IV ONE (01:40)
[2023-07-26 11:45] LABS: BASO % 0.4 % (0-2.0); EOS % 1.8 % (0-4.5); HEMATOCRIT 36.2 % (32.4-45.2); HEMOGLOBIN 11.9 GM/dL (10.7-15.3); LYMPH % 13.2 % (8-40); MCH 26.4 pg (25.7-33.7); MCHC 32.8 g/dl (32.0-36.0); MEAN CELL VOLUME 80.5 fl (80-96); MEAN PLT VOLUME 7.7 fl (7.5-11.1); MONO % 9.1 % (3.8-10.2); NEUT % 75.5 % (42.8-82.8); PLATELET COUNT 205 10^3/uL (134-434); RBC 4.49 M/mm3 (3.60-5.2); RDW 14.5 % (11.6-15.6); WHITE BLOOD COUNT 5.5 K/mm3 (4.0-10.0)
[2023-07-26] MEDS: LACTATED RINGERS SOLUTION 1,000 ML/1,000 ML INFUS.BAG IV SCH (11:46)
[2023-07-26 12:10] LABS: POTASSIUM 4.2 mmol/L (3.5-5.1)
[2023-07-26 12:13] LABS: ALBUMIN 3.1 g/dl (3.4-5.0); BLOOD UREA NITROGEN 22.1 mg/dL (7-18)
[2023-07-26 12:16] LABS: CREATININE 1.3 mg/dL (0.55-1.3)
[2023-07-26 12:17] LABS: BILIRUBIN,TOTAL 0.3 mg/dL (0.2-1); TOT PROT 6.5 g/dl (6.4-8.2)
[2023-07-26] MEDS ORDERED: SUCRALFATE 1 GM TABLET (FP) ONE (16:50)
[2023-07-26] MEDS ORDERED: PANTOPRAZOLE 40 MG TABLET PO ONE (16:50)
[2023-07-26] MEDS: PANTOPRAZOLE 40 MG TABLET PO SCH (16:57)
[2023-07-26] MEDS: SUCRALFATE 1 GM/10 ML UNIT DOSE CUPS PO SCH (16:57)
[2023-07-26 18:42] VITALS: BMI 26.6
[2023-07-26] MEDS: hydrALAZINE HCL 25 MG TABLET (FP) PO SCH (22:26)
[2023-07-26] MEDS: PRAMIPEXOLE DIHYDROCHLORIDE 0.25 MG TABLET PO SCH (22:26)
[2023-07-26] MEDS: GABAPENTIN 100 MG CAPSULE PO SCH (22:26)
[2023-07-26] MEDS: INSULIN ASPART SLIDING SCALE (NOVOLOG) 1 VIAL SQ SCH (22:27)
[2023-07-27] MEDS: amLODIPine BESYLATE 10 MG TABLET (FP) PO SCH (11:06)
[2023-07-27] MEDS: ASPIRIN 81 MG CHEWABLE TABLETS PO SCH (11:07)
[2023-07-27] MEDS: POLYETHYLENE GLYCOL (HEALTHYLAX) 3350 17 GM PACKET PO SCH (21:51)
[2023-07-28 11:46] LABS: HEMOGLOBIN 11.5 GM/dL (10.7-15.3); MCH 26.6 pg (25.7-33.7); MCHC 32.9 g/dl (32.0-36.0); MEAN CELL VOLUME 80.7 fl (80-96); MEAN PLT VOLUME 7.8 fl (7.5-11.1); PLATELET COUNT 192 10^3/uL (134-434); RBC 4.34 M/mm3 (3.60-5.2); RDW 14.5 % (11.6-15.6); WHITE BLOOD COUNT 2.5 K/mm3 (4.0-10.0)
[2023-07-28 11:58] LABS: POTASSIUM 4.3 mmol/L (3.5-5.1)
[2023-07-28 12:01] LABS: CALCIUM 8.7 mg/dL (8.5-10.1)
[2023-07-28 12:02] LABS: ALBUMIN 2.9 g/dl (3.4-5.0); BLOOD UREA NITROGEN 14.8 mg/dL (7-18)
[2023-07-28 12:05] LABS: CREATININE 1.5 mg/dL (0.55-1.3)
[2023-07-28 12:06] LABS: TOT PROT 6.1 g/dl (6.4-8.2)
[2023-07-28 12:07] LABS: BILIRUBIN,TOTAL 0.3 mg/dL (0.2-1)
[2023-07-28] MEDS: LACTATED RINGERS SOLUTION 1,000 ML/1,000 ML INFUS.BAG IV SCH (15:04)
[2023-07-28] MEDS: ACETAMINOPHEN 325 MG TABLET (FP) PO PRN (17:19)
[2023-07-29 15:44] LABS: EPI CELLS 1 /uL (0-25.1); HYALINE CASTS 0 /uL (0-3.1); PH,URINE 7.5 (5.0-8.0); URINE APPEARANCE CLEAR; URINE BACTERIA 1 /uL (0-1359); URINE BILIRUBIN NEGATIVE (NEGATIVE); URINE COLOR YELLOW; URINE GLUCOSE (UA) 2+ (NEGATIVE); URINE KETONE NEGATIVE (NEGATIVE); URINE LEUK ESTERASE NEGATIVE (NEGATIVE); URINE NITRITE NEGATIVE (NEGATIVE); URINE PROTEIN 2+ (NEGATIVE); URINE RBC 1 /uL (0-23.9); URINE UROBILINOGEN 0.2 mg/dL (0.2-1.0); URINE WBC 4 /uL (0-25.8)
[2023-07-30 08:53] LABS: BASO % 0.5 % (0-2.0); EOS % 6.1 % (0-4.5); HEMATOCRIT 33.4 % (32.4-45.2); HEMOGLOBIN 11.1 GM/dL (10.7-15.3); LYMPH % 31.3 % (8-40); MCH 26.9 pg (25.7-33.7); MCHC 33.2 g/dl (32.0-36.0); MEAN PLT VOLUME 7.6 fl (7.5-11.1); MONO % 11.1 % (3.8-10.2); PLATELET COUNT 186 10^3/uL (134-434); RBC 4.12 M/mm3 (3.60-5.2); RDW 14.5 % (11.6-15.6); WHITE BLOOD COUNT 3.9 K/mm3 (4.0-10.0)
[2023-07-30 09:19] LABS: POTASSIUM 4.5 mmol/L (3.5-5.1)
[2023-07-30 09:21] LABS: POTASSIUM 4.6 mmol/L (3.5-5.1)
[2023-07-30 09:23] LABS: BLOOD UREA NITROGEN 12.7 mg/dL (7-18); CALCIUM 8.7 mg/dL (8.5-10.1)
[2023-07-30 09:24] LABS: ALBUMIN 2.7 g/dl (3.4-5.0)
[2023-07-30 09:27] LABS: CREATININE 1.2 mg/dL (0.55-1.3)
[2023-07-30 09:28] LABS: BILIRUBIN,TOTAL 0.4 mg/dL (0.2-1); CALCIUM 8.6 mg/dL (8.5-10.1); TOT PROT 5.8 g/dl (6.4-8.2)
[2023-07-30 09:29] LABS: ALBUMIN 2.7 g/dl (3.4-5.0); BLOOD UREA NITROGEN 12.5 mg/dL (7-18)
[2023-07-30 09:32] LABS: CREATININE 1.2 mg/dL (0.55-1.3)
[2023-07-30 09:33] LABS: BILIRUBIN,TOTAL 0.4 mg/dL (0.2-1); TOT PROT 5.9 g/dl (6.4-8.2)
[2023-07-30] MEDS: POLYETHYLENE GLYCOL (HEALTHYLAX) 3350 17 GM PACKET PO SCH (09:57)
[2023-07-30] MEDS: BISACODYL 5 MG TABLET.DR (FP) PO SCH (09:59)
[2023-07-30] MEDS: ATORVASTATIN CA 20 MG TABLET (FP) PO SCH (22:13)
[2023-07-31] MEDS: MECLIZINE HCL 25 MG TABLET (FP) PO SCH (10:45)
[2023-07-31 14:23] VITALS: BP 134/60; PULSE 62; RESP 18; TEMP 98.2
== END 2023-07-31 16:53 | disposition home or self-care (01) ==
LOC: JER 17:29 → JERBED 07-26 11:02 → J7W 07-26 18:06
PROVIDERS: ADMIT Family Medicine; ATTEND Family Medicine
PROC: 3E033NZ Introduction of Analgesics, Hypnotics, Sedatives into Peripheral Vein, Percutaneous Approach (ICD-10-PCS; principal; 2023-07-26)
PROC: 3E013VG Introduction of Insulin into Subcutaneous Tissue, Percutaneous Approach (ICD-10-PCS; 2023-07-26)
PROC: 3E0337Z Introduction of Electrolytic and Water Balance Substance into Peripheral Vein, Percutaneous Approach (ICD-10-PCS; 2023-07-26)
DX: N17.9 Acute kidney failure, unspecified (principal); K85.90 Acute pancreatitis without necrosis or infection, unspecified; D05.12 Intraductal carcinoma in situ of left breast; D05.11 Intraductal carcinoma in situ of right breast; I25.10 Atherosclerotic heart disease of native coronary artery without angina pectoris; I11.0 Hypertensive heart disease with heart failure; E11.9 Type 2 diabetes mellitus without complications; Z85.07 Personal history of malignant neoplasm of pancreas; R42 Dizziness and giddiness; G43.909 Migraine, unspecified, not intractable, without status migrainosus; Z95.5 Presence of coronary angioplasty implant and graft; Z95.2 Presence of prosthetic heart valve; K21.9 Gastro-esophageal reflux disease without esophagitis; D64.9 Anemia, unspecified; E78.00 Pure hypercholesterolemia, unspecified; R10.30 Lower abdominal pain, unspecified; Z88.5 Allergy status to narcotic agent
CPT/HCPCS: 36415; 70450-TC; 74177-TC; 74183-TC; 76705-TC; 80053; 81003; 82607; 82962; 83690; 84443; 84478; 84484; 85025; 85027; 93005; 93010; 93880-TC; 93970-TC; 96372; 96374; 97116-GP; 97161-GP; 99285-25; G0378; J0131

== ENCOUNTER 2024-01-01 23:52 | Emergency (ER) | payer BC ==
[2024-01-02 00:04] VITALS: BP 154/67; PULSE 67; RESP 19; TEMP 98.5; BMI 29.5
[2024-01-02 00:57] LABS: BASO % 0.6 % (0-2.0); EOS % 2.4 % (0-4.5); HEMOGLOBIN 10.6 GM/dL (10.7-15.3); LYMPH % 23.1 % (8-40); MCH 26.8 pg (25.7-33.7); MCHC 33.2 g/dl (32.0-36.0); MEAN CELL VOLUME 80.8 fl (80-96); MEAN PLT VOLUME 7.4 fl (7.5-11.1); NEUT % 61.9 % (42.8-82.8); PLATELET COUNT 228 10^3/uL (134-434); RBC 3.96 M/mm3 (3.60-5.2); WHITE BLOOD COUNT 6.8 K/mm3 (4.0-10.0)
[2024-01-02 01:36] LABS: POTASSIUM 4.1 mmol/L (3.5-5.1)
[2024-01-02 01:38] LABS: ALBUMIN 3.2 g/dl (3.4-5.0); BLOOD UREA NITROGEN 41.3 mg/dL (7-18); CALCIUM 9.5 mg/dL (8.5-10.1); MAGNESIUM 2.2 mg/dL (1.8-2.4)
[2024-01-02 01:41] LABS: CREATININE 1.9 mg/dL (0.55-1.3)
[2024-01-02 01:43] LABS: BILIRUBIN,TOTAL 0.2 mg/dL (0.2-1); TOT PROT 6.5 g/dl (6.4-8.2)
[2024-01-02 01:46] LABS: N-TERMINAL BNP 295.8 pg/ml (5-450)
== END 2024-01-02 02:15 | disposition home or self-care (01) ==
LOC: JER 23:52
DX: M79.661 Pain in right lower leg (principal); M79.662 Pain in left lower leg; R42 Dizziness and giddiness; M79.89 Other specified soft tissue disorders
CPT/HCPCS: 36415; 71045-TC-FY; 80053; 83735; 83880; 84484; 85025; 93005; 93010; 99285-25

== ENCOUNTER 2024-08-23 12:56 | Observation (INO) | payer BC, OTHER ==
[2024-08-23 13:05] VITALS: BMI 26.2
[2024-08-23] MEDS: LACTATED RINGERS SOLUTION 1000 ML INFUS.BAG IV ONE (14:41)
[2024-08-23 14:44] LABS: ABSOLUTE IMMATURE GRANULOCYTES 0.02 x10^3/uL (0.0-0.031); BASOPHILS # 0.02 x10^3/uL (0.01-0.08); EOSINOPHIL % 0.4 % (0.7-5.8); EOSINOPHILS # 0.02 x10^3/uL (0.04-0.36); MCHC 33.2 g/dl (32.2-35.5); MEAN CELL VOLUME 81.1 fl (79.4-94.8); MEAN PLT VOLUME 9.0 fl (9.4-12.3); MONOCYTE # 0.47 x10^3/uL (0.24-0.86); MONOCYTE % 9.0 % (4.7-12.5); RDW 13.0 % (12.5-17.0)
[2024-08-23 15:09] LABS: CO2 25.0 mmol/L (21-32); GLUCOSE,RANDOM 264.0 mg/dL (74-106)
[2024-08-23 15:11] LABS: CREATININE 2.2 mg/dL (0.55-1.3); SGPT/ALT 19.0 U/L (13-61)
[2024-08-23 15:12] LABS: SGOT/AST 18.0 U/L (15-37)
[2024-08-23 15:13] LABS: TOT PROT 6.9 g/dl (6.4-8.2)
[2024-08-23 15:14] LABS: ALK PHOS 153.0 U/L (45-117)
[2024-08-23] MEDS ORDERED: POLYETHYLENE GLYCOL (HEALTHYLAX) 3350 17 GM PACKET PO PRN (19:50)
[2024-08-23] MEDS ORDERED: hydrALAZINE HCL 50 MG TABLET (FP) ONE (22:08)
[2024-08-23] MEDS ORDERED: ATORVASTATIN CA 20 MG TABLET (FP) ONE (22:09)
[2024-08-23] MEDS ORDERED: GABAPENTIN 300 MG CAPSULE ONE (22:09)
[2024-08-23] MEDS ORDERED: SUCRALFATE 1 GM TABLET (FP) ONE (22:10)
[2024-08-23] MEDS: SUCRALFATE 1 GM/10 ML UNIT DOSE CUPS PO SCH (22:20)
[2024-08-23] MEDS: GABAPENTIN 300 MG CAPSULE PO SCH (22:20)
[2024-08-23] MEDS: ATORVASTATIN CA 20 MG TABLET (FP) PO SCH (22:20)
[2024-08-23] MEDS: PRAMIPEXOLE DIHYDROCHLORIDE 0.25 MG TABLET PO SCH (22:20)
[2024-08-23] MEDS: hydrALAZINE HCL 25 MG TABLET (FP) PO SCH (22:20)
[2024-08-23] MEDS: HEPARIN NA (PORCINE) 5,000 UNITS/ML 1ML VIAL SQ SCH (22:25)
[2024-08-23] MEDS ORDERED: HEPARIN NA (PORCINE) 5,000 UNITS/ML 1ML VIAL ONE (22:26)
[2024-08-23] MEDS ORDERED: ASPIRIN 81 MG CHEWABLE TABLETS ONE (22:48)
[2024-08-23] MEDS: INSULIN ASPART SLIDING SCALE (NOVOLOG) 1 VIAL SQ SCH (23:23)
[2024-08-24] MEDS ORDERED: HEPARIN NA (PORCINE) 5,000 UNITS/ML 1ML VIAL ONE ×2 (05:16→14:23)
[2024-08-24] MEDS ORDERED: hydrALAZINE HCL 50 MG TABLET (FP) ONE ×3 (05:16→14:32)
[2024-08-24] MEDS ORDERED: GABAPENTIN 300 MG CAPSULE ONE ×2 (05:16→14:22)
[2024-08-24] MEDS ORDERED: INSULIN GLARGINE (LANTUS) 100 UNITS/ML UNITS SQ ONE (06:50)
[2024-08-24] MEDS ORDERED: SUCRALFATE 1 GM TABLET (FP) ONE (06:50)
[2024-08-24] MEDS: INSULIN GLARGINE (LANTUS) 100 UNITS/ML UNITS SQ SCH (07:04)
[2024-08-24 08:01] LABS: ABSOLUTE IMMATURE GRANULOCYTES 0.01 x10^3/uL (0.0-0.031); BASOPHILS # 0.02 x10^3/uL (0.01-0.08); EOSINOPHIL % 1.3 % (0.7-5.8); EOSINOPHILS # 0.06 x10^3/uL (0.04-0.36); MCHC 32.5 g/dl (32.2-35.5); MEAN CELL VOLUME 81.6 fl (79.4-94.8); MEAN PLT VOLUME 9.2 fl (9.4-12.3); MONOCYTE # 0.48 x10^3/uL (0.24-0.86); MONOCYTE % 10.6 % (4.7-12.5); RDW 13.2 % (12.5-17.0)
[2024-08-24 08:23] LABS: CO2 25.0 mmol/L (21-32); GLUCOSE,RANDOM 148.0 mg/dL (74-106)
[2024-08-24 08:26] LABS: CREATININE 1.7 mg/dL (0.55-1.3); SGOT/AST 13.0 U/L (15-37); SGPT/ALT 19.0 U/L (13-61)
[2024-08-24 08:28] LABS: TOT PROT 5.9 g/dl (6.4-8.2)
[2024-08-24 08:29] LABS: ALK PHOS 129.0 U/L (45-117)
[2024-08-24] MEDS ORDERED: amLODIPine BESYLATE 10 MG TABLET (FP) ONE (10:48)
[2024-08-24] MEDS ORDERED: ASPIRIN 81 MG CHEWABLE TABLETS ONE (10:48)
[2024-08-24] MEDS: EXEMESTANE 25 MG TABLET PO SCH (10:52)
[2024-08-24] MEDS: ASPIRIN 81 MG CHEWABLE TABLETS PO SCH (10:52)
[2024-08-24] MEDS: amLODIPine BESYLATE 10 MG TABLET (FP) PO SCH (10:52)
[2024-08-25 07:39] LABS: ABSOLUTE IMMATURE GRANULOCYTES 0.01 x10^3/uL (0.0-0.031); BASOPHILS # 0.03 x10^3/uL (0.01-0.08); EOSINOPHIL % 1.8 % (0.7-5.8); EOSINOPHILS # 0.09 x10^3/uL (0.04-0.36); MCHC 31.4 g/dl (32.2-35.5); MEAN CELL VOLUME 83.9 fl (79.4-94.8); MEAN PLT VOLUME 9.4 fl (9.4-12.3); MONOCYTE # 0.53 x10^3/uL (0.24-0.86); MONOCYTE % 10.7 % (4.7-12.5); RDW 13.2 % (12.5-17.0)
[2024-08-25 08:09] LABS: CO2 27.0 mmol/L (21-32); GLUCOSE,RANDOM 122.0 mg/dL (74-106)
[2024-08-25 08:12] LABS: CREATININE 1.8 mg/dL (0.55-1.3); SGOT/AST 16.0 U/L (15-37); SGPT/ALT 18.0 U/L (13-61)
[2024-08-25 08:14] LABS: TOT PROT 5.6 g/dl (6.4-8.2)
[2024-08-25 08:15] LABS: ALK PHOS 119.0 U/L (45-117)
[2024-08-25] MEDS ORDERED: DEXTROSE 50%-WATER 25 GM/50 ML DISP.SYRIN IVPUSH PRN (09:05)
[2024-08-25] MEDS: INSULIN ASPART SLIDING SCALE (NOVOLOG) 1 VIAL SQ SCH (11:16)
[2024-08-26] MEDS: INSULIN GLARGINE (LANTUS) 100 UNITS/ML UNITS SQ SCH (06:07)
[2024-08-26 09:23] VITALS: RESP 17; TEMP 98.8
[2024-08-26 09:31] VITALS: BP 116/51; PULSE 70
== END 2024-08-26 13:27 | disposition home health service (06) ==
LOC: JER 12:56 → JERBED 19:37 → J4S 08-24 14:38
PROVIDERS: ADMIT Student in an Organized Health Care Education/Training Program; ATTEND Family Medicine
PROC: 3E023GC Introduction of Other Therapeutic Substance into Muscle, Percutaneous Approach (ICD-10-PCS; principal; 2024-08-23)
PROC: 3E013VG Introduction of Insulin into Subcutaneous Tissue, Percutaneous Approach (ICD-10-PCS; 2024-08-23)
PROC: 3E0337Z Introduction of Electrolytic and Water Balance Substance into Peripheral Vein, Percutaneous Approach (ICD-10-PCS; 2024-08-23)
DX: I95.1 Orthostatic hypotension (principal); R80.9 Proteinuria, unspecified; N17.9 Acute kidney failure, unspecified; G43.909 Migraine, unspecified, not intractable, without status migrainosus; E83.41 Hypermagnesemia; E11.9 Type 2 diabetes mellitus without complications; I10 Essential (primary) hypertension; I35.0 Nonrheumatic aortic (valve) stenosis; R42 Dizziness and giddiness; K21.9 Gastro-esophageal reflux disease without esophagitis; E78.5 Hyperlipidemia, unspecified; Z85.3 Personal history of malignant neoplasm of breast; Z85.07 Personal history of malignant neoplasm of pancreas; Z88.5 Allergy status to narcotic agent
CPT/HCPCS: 36415; 70450-TC; 71045-TC-FY; 76775-TC; 80053; 82962; 83036; 83735; 83930; 83935; 84100; 84300; 84443; 84484; 85025; 87086; 93005; 93010; 93306-TC; 96372; 97116-GP; 97161-GP; 99285-25; G0378